=== PATIENT | male | born 1990 | race Two or more races ===

== ENCOUNTER 2020-10-26 13:05 | Emergency (ER) | payer OTHER, SELFPAY ==
[2020-10-26 13:47] VITALS: BP 119/63; PULSE 65; RESP 18; TEMP 36.6; O2SAT 100; BMI 21.4
== END 2020-10-26 16:16 | disposition left against medical advice (07) ==
PROVIDERS: Emergency Provider Emergency Medicine
DX: R10.31 Right lower quadrant pain (principal); F17.200 Nicotine dependence, unspecified, uncomplicated
CPT/HCPCS: 99281; 99283

== ENCOUNTER 2021-07-06 08:55 | Emergency (ER) | payer OTHER, SELFPAY ==
--- NOTE | ~2021-07-06 | XR_ITS ---
EXAMINATION: XR KNEE, LEFT CLINICAL INFORMATION: Trauma, pain COMPARISON: Radiographs left knee 03/08/2019. TECHNIQUE: Four views of the left knee. FINDINGS: There are old postsurgical changes consistent with ACL repair. There is no fracture or dislocation or destructive process. There is a small to moderate suprapatellar effusion. Hoffa's fat pad appears normal. There is no interval joint narrowing or erosive change. XR/XR knee LT 3V IMPRESSION: Postsurgical changes. New small to moderate effusion. No visible fracture or dislocation or destructive process.
[2021-07-06 09:05] VITALS: BP 135/67; PULSE 93; RESP 18; TEMP 36.7; O2SAT 95; BMI 22.7
--- NOTE | 2021-07-06 09:13 | ED_ITS ---
HPI - Extremity Injury (Lower) General Chief Complaint: Extremity Injury, Lower Stated Complaint: L KNEE PAIN Time Seen by Provider: 07/06/21 09:05 Source: patient Mode of arrival: ambulatory Limitations: no limitations History of Present Illness HPI Narrative: 30 y/o male with history of ACL and meniscus surgery in the past who presents to the ER with left knee pain after he twisted it yesterday when he missed a step leaving his house. He reports it feels unsteady and wobbly when he walks. He reports some mild swelling. He has been wearing a knee brace that has been helping. He was sent home from work today because he was limping and in pain. He took Tylenol with no relief. MD complaint: knee injury Onset (ago): day(s) (1) Type of Injury: inversion Place: home Severity: moderate Severity scale (1-10): 5 Relieving factors: nothing Exacerbating factors: weight bearing Context: walking Associated symptoms: ambulatory Other symptoms: none Related Data Previous Rx's Medication Instructions Recorded ibuprofen 600 mg tablet 600 mg PO Q8H PRN #20 tab 07/06/21 Allergies Allergy/AdvReac Type Severity Reaction Status Date / Time hazelnut [HAZELNUT] Allergy Unknown STOMACH Verified 07/06/21 09:08 PAIN mite-Dermatophagoides Allergy Unknown RASH Verified 07/06/21 09:08 farinae, gareth [DUST MITES] shellfish derived Allergy Unknown SWELLING Verified 07/06/21 09:08 [SHELLFISH DERIVED] sweet potato [SWEET POTATO] Allergy Unknown RASH, Verified 07/06/21 09:08 THROAT ITCH HEAT Allergy Intermediate ITCHY, Uncoded 07/14/20 17:16 DIFFICUTLY BREATHING TUNA FISH Allergy Unknown THROAT ITCH Uncoded 07/14/20 17:16 Review of Systems Review of Systems: Constitutional: No Fever, No Chills Cardiovascular: No Chest Pain, No SOB Respiratory: No Cough, No Sputum Gastrointestinal: No Nausea, No Vomiting Musculoskeletal: + joint pain, No Myalgias Skin: No Skin Lesions, No rash Neuro: No Weakness, No Numbness Heme/Lymph: No Bruising PMFSH Past Medical History Medical History (Updated 07/06/21 @ 09:59 by JAYSON Rodriguez) Left ACL tear No known health problems Social History Social History Alcohol intake: never Advance Directives: Yes Advance Directives Information Provided: Yes Advance Directives on File: No Physical Exam Vital Signs: Vital Signs: Last Vital Signs Temp 98.0 F 07/06/21 09:05 Pulse 93 07/06/21 09:05 Resp 18 07/06/21 09:05 BP 135/67 07/06/21 09:05 Pulse Ox 95 07/06/21 09:05 Body Mass Index 22.7 Appearance: Alert. Oriented X3. No acute distress. HEENT: normal inspection CVS: Normal heart rate and rhythm. Pulses normal. Respiratory: No respiratory distress. Skin: Skin warm and dry. Normal skin color. Normal skin turgor. No rashes. Extremities: left knee with minimal swelling, no erythema or warmth. pain upon flexion past 90 degrees, negative anterior drawer test. ambulates with a slight limp Neuro: Oriented X 3. No motor deficit. No sensory deficit. Course Course Course Narrative: 30 y/o male presents with left knee pain s/p minor inversion injury. He thinks he may have heard a pop and it feels wobbly since. No definitive joint laxity on exam however he reports instability. XR showing mild- moderate effusion. No evidence of joint infection. Will place in ALYSS[place], prescribe NSAID, give crutches and have him f/u with Dr. Muller who preformed his previous surgery. He reports grinding pain in the left knee prior to the injury and he feels like it pops in and out. He is stable for d/c with supportive care and outpatient Ortho follow up. Discharge Plan Discharge Clinical Impression: Effusion of left knee Patient Disposition: Home, Self-Care Instructions: Swollen Knee Joint (ED), R.I.C.E. Treatment (ED) Additional Instructions: Your x-ray showed a small to moderate sized joint effusion - fluid on the knee. Wear the ALYSSIA wrap or your knee brace to help compress the knee and reduce the fluid. Rest your knee for the next couple of days, use the crutches as needed. You may bear weight as tolerated. Use ice several times per day. Follow up with Dr. Muller for further evaluation. Prescriptions: New ibuprofen 600 mg tablet 600 mg PO Q8H PRN (Reason: pain) Qty: 20 RF: 0 Referrals: Jasiel Muller MD [Physician] - 2 days (left knee injury w/ joint laxity, hx ACL/meniscus repair) Stand Alone Forms: Work/School Release
[2021-07-06] MEDS: Ibuprofen 600 MG TABLET PO (09:47)
== END 2021-07-06 10:08 | disposition home or self-care (01) ==
PROVIDERS: Emergency Provider Emergency Medicine
DX: M25.462 Effusion, left knee (principal); M25.562 Pain in left knee
CPT/HCPCS: 73562; 99283

== ENCOUNTER → 2021-07-17 09:09 | Outpatient (BNVA) | payer OTHER, SELFPAY | PROVIDERS: Visit Provider Physician Assistant | DX: S83.512A Sprain of anterior cruciate ligament of left knee, initial encounter (principal) | CPT/HCPCS: 99202 ==

== ENCOUNTER 2021-07-26 18:14 | Outpatient (REF) | payer OTHER, SELFPAY ==
--- NOTE | ~2021-07-26 | MR_ITS ---
EXAMINATION: MR KNEE WITHOUT CONTRAST, LEFT CLINICAL INFORMATION: Anterior cruciate ligament sprain. COMPARISON: Multiple priors, most recent left knee radiographs dated 07/06/2021 and left knee MRI dated 05/17/2017. TECHNIQUE: MRI of the knee without contrast was performed using routine sequences on a high-field scanner. FINDINGS: MENISCI: Medial Meniscus: Attenuation with near-complete absence of the meniscal body and posterior horn, consistent with prior meniscectomy. Focal irregularity along the inner margin of the persisting meniscal body, which may represent recurrent focal fraying/tearing. Lateral Meniscus: Possible nondisplaced oblique femoral articular surface tear of the meniscal body, unchanged. LIGAMENTS: Cruciate: Postsurgical change related to an anterior cruciate ligament graft reconstruction. There is a complete tear of the graft with absence centrally. There is expansion of the tibial tunnel with associated degenerative cystic change. The posterior cruciate ligament is intact. Collateral: Intact EXTENSOR MECHANISM: Intact ARTICULAR CARTILAGE/BONE: Patellofemoral Compartment: Central trochlear articular cartilage signal heterogeneity. Tiny marginal osteophytes. Findings are unchanged. Medial Compartment: Posterior lateral tibial plateau articular cartilage signal heterogeneity with areas of full-thickness loss and underlying subchondral cystic change. Prominent associated marrow edema. Tiny marginal osteophytes. Lateral Compartment: Intact articular cartilage. Posterior lateral tibial plateau marrow edema. JOINT FLUID AND BURSAE: Small joint effusion. MR/MR knee LT wo con IMPRESSION: 1. Postsurgical change consistent with anterior cruciate ligament graft. Complete tear through the central aspect of the graft with diffuse degeneration of the tibial component. 2. Marrow edema within the posterior aspect of the medial and lateral tibial plateau, consistent with osseous contusions. 3. Attenuation of the medial meniscal body and posterior horn, consistent with prior meniscectomy. Possible recurrent fraying/tearing along the inner margin of the persistent meniscal body. 4. Possible nondisplaced oblique femoral articular surface tear of the lateral meniscal body, unchanged. 5. Mild medial and patellofemoral compartment osteoarthritis, slightly progressed. Small joint effusion.
== END 2021-07-26 18:15 | disposition home or self-care (01) ==
LOC: HO.MRI 18:14
PROVIDERS: Visit Provider Physician Assistant
DX: S83.512A Sprain of anterior cruciate ligament of left knee, initial encounter (principal)
CPT/HCPCS: 73721

== ENCOUNTER → 2021-07-31 13:49 | Outpatient (BNVA) | payer OTHER, SELFPAY | PROVIDERS: Visit Provider Physician Assistant | DX: T84.89XD Other specified complication of internal orthopedic prosthetic devices, implants and grafts, subsequent encounter (principal) | CPT/HCPCS: 99212 ==

== ENCOUNTER → 2021-10-03 12:35 | Outpatient (BNVA) | payer OTHER, SELFPAY | PROVIDERS: Visit Provider Physician Assistant | DX: T84.89XD Other specified complication of internal orthopedic prosthetic devices, implants and grafts, subsequent encounter (principal) | CPT/HCPCS: 99212 ==

== ENCOUNTER 2021-10-25 14:00 | Outpatient (RCR) | payer OTHER, SELFPAY ==
--- NOTE | 2021-08-11 14:16 | MHC.PT.EP ---
[facility] [place] Office [place] Office [place] Office [address] Shoshana Lundberg [address] [phone] F: [phone] F: [phone] F: [phone] F: [phone] Physical Therapy Plan of Care Date of Evaluation: Date of Surgery: L ACL RECONSTRUCTION PER DR QUINONES 02/28/17..TO HAVE L KNEE SURG IN 4-6 WKS Diagnosis: ACL FULL TEAR OF ACL GRAFT, PREHAB Assessment: Pt IS 30 YO M REFERRED TO PT FROM ORTHO (JAYSON REGAN) S/P COMPLETE TEAR OF ACL GRAFT L KNEE. Pt HAD L ACL RECONSTRUCTION BY DR QUINONES IN 2017. RECENT (07/05/21) Pt FELL (L ANKLE INVERSION) ON SMALL STEP (DOOR THRESHOLD)>MRI/ORTHO AND FOUND TO HAVE COMPLETE TEAR OF ACL GRAFT. IS TO HAVE SURGERY IN 4-6 WKS. REFERRED TO PT AT THIS TIME FOR PREHAB TO WORK ON ROM AND STRENGTH AND HELP DECREASE OVERALL INFLAMMATION AND PAIN. Pt PRESENTS WITH DECREASED END ROM L KNEE FLEX (HAS FULL EXTENSION ALTHOUGH UNCOMFORTABLE TO MAINTAIN), DECREASED L LE STRENGTH. OF NOTE, Pt MAY HAVE SPRAINED L ANKLE WITH FALL (REPORTS INVERSION TYPE MOTION WITH CONTINUED PAIN AND LIMITED ROM/STRENGTH AT ANKLE). Pt ALSO REPORTS L HIP.LB PAIN (LIKELY FROM COMPENSATORY TYPE GT). SHOULD BENEFIT FROM PT TO ADDRESS ALL THESE ISSUES PRIOR TO L KNEE SURGERY IN 4-6 WEEKS Frequency and Duration: The patient will be seen 2X/WK X 4 WKS Short Term Goals: 1. INCREASED AWARENESS L LE CARE 2. IMPROVED SLEEP 3. IMPROVED GT PATTER WITH LRAD (MAY BENEFIT FROM USE OF CANE) 4. INCREASED L ANKLE DF TO NEUTRAL Facility Environmental Technician Goals: 1. INCREASED L KNEE FLEX 5 DEGREES 2. DECREASED L LE PAIN AT LEAST 50% WITH ADLS 3. INCREASED L LE STRENGTH 1/2-1 MM GRADE 4. INCREASED L ANKLE DF TO 5 DEGREES 5. INCREASED L ANKLE STRENGTH 1/2 MM GRADE Treatment Plan: Modalities to reduce pain, spasms and effusion. Manual therapy to restore motion and function. Therapeutic exercise to improve strength and flexibility. Neuromuscular re-education for posture and balance. Therapeutic activities to return to functional activities of daily living. Electronically signed by: KANU ROGERS PT Please sign and return to therapist. Thank you for your referral.
--- NOTE | 2021-11-29 12:19 | MHC.PT.DC ---
[facility] [place] Office [place] Office [place] Office [address] [phone] F: [phone] F: [phone] F: [phone] F: [phone] Physical Therapy Discharge Report Diagnosis: ACL FULL TEAR OF ACL GRAFT, PREHAB Date of Surgery: L ACL RECONSTRUCTION PER DR QUINONES 02/28/17..TO HAVE L KNEE SURG IN 4-6 WKS Date of Evaluation: 08/11/21 Date of Discharge: 11/29/21 Treatments to Date: 9 Cancellations to Date: No Shows to Date: Discharge Status: Achieved Goals Independent with HEP Discharge Summary: Pt LAST SEEN IN [place] ON 10/25/21. PER ASSESSMENT ON THAT DATE BY TORIE WHEELER PTA, Pt continues to christy all CKC exercises reporting he feels much better. Anticipate d/c in 2-3 visits? . NO FURTHER APPTS SCHEDULED. PER NOTES, HAD MET STGS AND SOME LTGS. PER ORTHO NOTE FROM 11/27/21: Assessment & Plan (1) Tear of anterior cruciate ligament graft: Code(s): T84.89XA - Other specified complication of internal orthopedic prosthetic devices, implants and grafts, initial encounter Plan: 30-year-old with a complete tear of the ACL graft. He has done physical therapy and his quad is stronger. He understands the need for additional surgery and additional physical therapy and is willing to proceed forward. I recommend revision ACL reconstruction. I discussed with him the surgery as well as the risks benefits alternatives including, but not limited to, infection, stiffness, arthritis, need for further surgery, continued instability. He expressed understanding and we will proceed forward accordingly. WILL AWAIT FURTHER ORDERS FOR POSTOP PT Electronically signed by: KANU ROGERS PT Please sign and return to therapist. Thank you for your referral.
== END 2021-12-01 09:25 | disposition home or self-care (01) ==
LOC: HO.PT 14:00
PROVIDERS: Visit Provider Physician Assistant
DX: T84.89XD Other specified complication of internal orthopedic prosthetic devices, implants and grafts, subsequent encounter (principal)
CPT/HCPCS: 97110; 97162; 97530; 97535

== ENCOUNTER → 2021-11-27 14:43 | Outpatient (BNVA) | payer OTHER, SELFPAY | PROVIDERS: Visit Provider Orthopaedic Surgery | DX: T84.89XA Other specified complication of internal orthopedic prosthetic devices, implants and grafts, initial encounter (principal) | CPT/HCPCS: 99212 ==

== ENCOUNTER → 2022-02-16 12:47 | Outpatient (BNVA) | payer OTHER, SELFPAY | PROVIDERS: Visit Provider Physician Assistant | DX: Z01.818 Encounter for other preprocedural examination (principal); S83.512A Sprain of anterior cruciate ligament of left knee, initial encounter; T84.89XA Other specified complication of internal orthopedic prosthetic devices, implants and grafts, initial encounter | CPT/HCPCS: 99212 ==

== ENCOUNTER 2022-02-21 07:58 | Day surgery (SDC) | payer OTHER, SELFPAY ==
[2022-02-21] VITALS (16 sets, daily range): BP systolic 106–143; BP diastolic 70–99; PULSE 61–90; RESP 14–16; TEMP 36.4–36.6; O2SAT 97–100; BMI 22.6
--- NOTE | 2022-02-21 08:30 | HO.ANESPROP2 ---
HPI - Anesthesia Eval Consult details Narrative: 31 M for left knee ACL repair Asthma , current smoker [facility] Active Problems Active Problems: All Active Problems (Updated 02/15/22 @ 09:58 by Ashley Case RN) Sprain of anterior cruciate ligament of left knee (Acute) Tear of anterior cruciate ligament graft (Acute) Past Medical History Medical History (Updated 02/15/22 @ 09:58 by Ashley Case RN) Asthma Left ACL tear Migraine Functional capacity: independent ambulation Family History Family history of problems with anesthesia: No Surgical History Surgical History (Updated 02/15/22 @ 09:58 by Ashley Case RN) History of repair of anterior cruciate ligament of left knee History of Problems with Anesthesia: No Social History Social History Alcohol intake: never Patient Tobacco Use Status: Current everyday Tobacco user Cigarettes Per Day: 10 Use of substances other than those prescribed or required for medical reasons: Yes Substance Use Frequency: Occasionally Are you DNR?: No Advance Directives: No Advance Directives Information Provided: Yes Current occupational status: employed Current occupation: rt [employer] Allergies Allergy/AdvReac Type Severity Reaction Status Date / Time hazelnut [HAZELNUT] Allergy Unknown STOMACH Verified 02/15/22 09:53 PAIN mite-Dermatophagoides Allergy Unknown RASH Verified 02/15/22 09:53 farinae, gareth [DUST MITES] shellfish derived Allergy Unknown SWELLING Verified 02/15/22 09:53 [SHELLFISH DERIVED] sweet potato [SWEET POTATO] Allergy Unknown RASH, Verified 02/15/22 09:53 THROAT ITCH HEAT Allergy Intermediate ITCHY, Uncoded 02/15/22 09:53 DIFFICUTLY BREATHING TUNA FISH Allergy Unknown THROAT ITCH Uncoded 02/15/22 09:53 Active Medications: Current Medications Cefazolin Sodium/Dextrose (Ancef) 2 gm in 50 mls @ 100 mls/hr IV PREOP ONE Stop: 02/21/22 08:38 Home Medications Medication Instructions Recorded Confirmed Last Taken Type albuterol sulfate 90 mcg/actuation 2 puff PO Q4-6H PRN 02/15/22 02/15/22 Unknown History aerosol inhaler (ProAir HFA) cetirizine 10 mg tablet 1 tab PO DAILY 02/15/22 02/15/22 Unknown History fluticasone propionate 50 2 spray INTRANASAL DAILY 02/15/22 02/15/22 Unknown History mcg/actuation nasal spray,suspension Exam Exam Date and Time: February 21, 2022 0830 Height,Weight and Vital Signs: Height 5 ft 7 in Weight 65.41 kg Last Vital Signs Temp 97.7 F 02/21/22 08:16 Pulse 68 02/21/22 08:16 Resp 16 02/21/22 08:16 BP 129/70 02/21/22 08:16 Pulse Ox 97 02/21/22 08:16 Airway Mallampati Class: I TM Dist: >3cm Loose/Missing/Broken Teeth: Yes (Chipped teeth multiple , crowns . ) Heart: S1 , S2 Lungs: b/l breath sounds Assessment and Plan Assessment Anesthesia Assessment: Anesthesia Plan Discussed and Chart Reviewed Final Anesthetic Review Family History of Problems with Anesthesia: No History of Problems with Anesthesia: No NPO: Yes ASA Class: II Final Preanesthetic Review: Meds/Allgs Chart Reviewed, Consent Obtained/Reviewed and Anes Risks/Benef Reviewed Patient Risk: Intermediate Procedure Risk: Intermediate Anesthetic Plan Anesthetic Plan: GA and Regional Block Disposition: Standard PACU
--- NOTE | 2022-02-21 10:10 | MHC.SHP ---
Pre-Procedural Eval Section A Date of Service: 02/21/22 The patient is an INPATIENT: No Changes since office visit: Yes Patient answered all questions; No Cold of Flu in the past 2 weeks, No New Medical Problems and No Changes in Medication The History & Physical has been completed within 30 days and I have reviewed it.: Yes Section B Chief Complaint: internal orthopedic prosthetic devices Allergies: Allergies Allergy/AdvReac Type Severity Reaction Status Date / Time hazelnut [HAZELNUT] Allergy Unknown STOMACH Verified 02/15/22 09:53 PAIN mite-Dermatophagoides Allergy Unknown RASH Verified 02/15/22 09:53 farinae, gareth [DUST MITES] shellfish derived Allergy Unknown SWELLING Verified 02/15/22 09:53 [SHELLFISH DERIVED] sweet potato [SWEET POTATO] Allergy Unknown RASH, Verified 02/15/22 09:53 THROAT ITCH HEAT Allergy Intermediate ITCHY, Uncoded 02/15/22 09:53 DIFFICUTLY BREATHING TUNA FISH Allergy Unknown THROAT ITCH Uncoded 02/15/22 09:53 Plan I have reviewed the history and physical and performed a pertinent physical examination on my patient. No changes have occurred unless specified.
--- NOTE | 2022-02-21 12:45 | PM.OP ---
Brief Operative Note Date of Service: 02/21/22 Pre-op diagnosis: Left ACL graft tear Post-op diagnosis: same Procedure: Revision ACL reconstruction with allograft left knee Implants: Chacon and Nephew Allograft [place]ahcon and nephew ACL femoral button Chacon and Nephew 11x25 tibial interference screw Surgeon: Jasiel Muller MD Anesthesia: GETA and regional Was an Director Of Hotel Operations used for this Procedure?: Yes Director Of Hotel Operations: Kelly Saleem Estimated blood loss (mL): 25 Tourniquet time (min): 90 IV fluids (mL): 1,000 Pathology: none sent Condition: stable Disposition: PACU
--- NOTE | 2022-02-21 12:50 | W.PM.OPN ---
Operative Note Operative Note Date of Service: 02/21/22 Narrative: Date of Service: 02/21/22 Pre-op diagnosis: Left ACL graft tear Post-op diagnosis: same Procedure: Revision ACL reconstruction with allograft left knee Implants: Chacon and Nephew posterior tibial Allograft Chacon and nephew ACL femoral button Chacon and Nephew 11x25 tibial interference screw Surgeon: Jasiel Muller MD Anesthesia: GETA and regional Was an Educational Consultant used for this Procedure?: Yes Educational Consultant: Kelly Saleem Estimated blood loss (mL): 25 Tourniquet time (min): 90 IV fluids (mL): 1,000 Pathology: none sent Condition: stable Disposition: PACU Patient was brought to the operating room placed supine on the arthroscopic table and prepped and draped in standard sterile fashion. A time-out was called to identify proper site proper procedure proper surgeon and IV antibiotics per weight were administered. I began by exsanguinating the limb and insufflating tourniquet to 300 mm Hg. Then made a standard anterolateral stab incision. The knee was insufflated with water and 30 degree arthroscope was placed. There was a normal suprapatellar pouch was clean and the gutters were clean. I descended into the medial compartment where I made my far medial portal under direct visualization. There was a diminutive but stable medial meniscus without tearing. The root was intact and there were no cartilage changes throughout the medial compartment. THe ACL graft was torn and resorbed. The lateral compartment was with G1 changes to the tibia. The meniscus was intact and stable. I used a wand and a shaver to remove soft tissue and do a clean up notchplasty. The femoral tunnel was filled in with bone and there was some softening of the tibial tunnel. I drilled my femoral tunnel low and inside from the far medial portal using a 7 mm guide off the posterior wall. I over-reamed this with a 10mm reamer and then completed the tunnel with a 4.5 mm reamer. THe tunnel measure 35 mm. On the back table the posterior tibial allograft was prepared, doubled and put on tension of 15 lbs for 10 minutes. The graft measured just under 10mm using a tendon sizer. I drilled my tibial pin exiting at the footprint of the acl just anterior to the PCL. I then over-reamed my tibial tunnel with a 10 mm reamer and placed my arthroscope in the tunnel. There was some minimal softening anteromedially but otherwise there was good stable bone and a stable tunnel. I then passed my graft and filpped my button on the femur. Tension was applied and I cycled the knee 15-20 times. I then placed my tibial interference screw while applying tension and a posterior force to the tubercle. I had excellent interference screw fixation. Excess graft adn suture were removed and the ACL was assessed. There was no longer a pivot shift on exam. I took my final pictures and I then removed all instrumentation and closed the portals with skin glue. Patient was then placed in sterile dressing and a hinged knee brace. He was extubated brought recovery room stable condition. There were no known complications.
[2022-02-21] MEDS: fentaNYL citrate/PF 100 MCG/2 ML VIAL 25 MCG IVPUSH (13:57)
== END 2022-02-21 16:48 | disposition home or self-care (01) ==
PROVIDERS: Visit Provider Orthopaedic Surgery
PROC: (CPT 29888; principal; 2022-02-21 09:40)
DX: T84.89XA Other specified complication of internal orthopedic prosthetic devices, implants and grafts, initial encounter (principal); M23.612 Other spontaneous disruption of anterior cruciate ligament of left knee; J45.909 Unspecified asthma, uncomplicated; Z79.51 Long term (current) use of inhaled steroids; Z79.1 Long term (current) use of non-steroidal anti-inflammatories (NSAID); Z79.899 Other long term (current) drug therapy; F17.210 Nicotine dependence, cigarettes, uncomplicated
CPT/HCPCS: 29888; C1713; C1769; J0131; J0171; J0690; J1100; J1170; J2250; J2405; J2550; J2795; J3010

== ENCOUNTER → 2022-03-01 11:50 | Outpatient (BNVA) | payer OTHER, SELFPAY | PROVIDERS: Visit Provider Physician Assistant | DX: S83.512D Sprain of anterior cruciate ligament of left knee, subsequent encounter (principal); T84.89XD Other specified complication of internal orthopedic prosthetic devices, implants and grafts, subsequent encounter | CPT/HCPCS: 99212 ==

== ENCOUNTER → 2022-03-29 10:47 | Outpatient (BNVA) | payer OTHER, SELFPAY | PROVIDERS: Visit Provider Physician Assistant | DX: S83.512D Sprain of anterior cruciate ligament of left knee, subsequent encounter (principal); T84.89XD Other specified complication of internal orthopedic prosthetic devices, implants and grafts, subsequent encounter | CPT/HCPCS: 99212 ==

== ENCOUNTER 2022-05-07 14:00 | Outpatient (RCR) | payer OTHER, SELFPAY ==
--- NOTE | 2022-03-30 16:14 | MHC.PT.EP ---
[facility] [place] Office [place] Office [place] Office [address] [phone] F: [phone] F: [phone] F: [phone] F: [phone] Physical Therapy Plan of Care Date of Evaluation: Date of Surgery: 02/21/2022 Diagnosis: other specified complication of internal prosthetic devices, implants and graft, initial encounter s/p ACL recon Tear of anterior cruciate ligament graft Assessment: Chris is a 31 yo M referred to PT for other specified complication of internal prosthetic devices, implants and graft, initial encounter s/p ACL recon. He is currently 5 weeks s/p L ACL reconstruction. He states he has had difficulty walking and turning since his first ACL surgery. He is currently unemployed due to pain. His assist him with ADLs and he utilizes a stool in the shower. He life on the third floor of a building and needs to ambulate 45 steps to get to his living space. His physical impairments include decrease L knee flexion ROM, L knee flexion and extension weakness, antalgic gait, and gross B weakness of hip muscles. Chris will benefit from skilled PT to increase his knee ROM along with his knee and hip strength to normalize his gait and promote a return to functional activities. Frequency and Duration: The patient will be seen 2/week for 12 weeks Short Term Goals: Patient will demonstrate L Knee AROM 0-125 to enable to negotiate stairs in 4 weeks. Patient will demonstrate quad strength 75% of contralateral side in 4 weeks so as to be able to ambulate without AD and brace. Senior Living Goals: Patient will demonstrate I with HEP to promote adjunct faculty for medical terminology pain management and retention of functional capabilities. Patient will demonstrate quadriceps bilateral comparison of 80% or greater in 12 weeks and return to PLOF. Treatment Plan: Modalities to reduce pain, spasms and effusion. Manual therapy to restore motion and function. Therapeutic exercise to improve strength and flexibility. Neuromuscular re-education for posture and balance. Therapeutic activities to return to functional activities of daily living. Electronically signed by: Tamanna Kent PT DPT Please sign and return to therapist. Thank you for your referral.
--- NOTE | 2022-05-25 14:39 | MHC.PT.DC ---
[facility] [place] Office [place] Office [place] Office [address] Shoshana Lundberg [address] [phone] F: [phone] F: [phone] F: [phone] F: [phone] Physical Therapy Discharge Report Diagnosis: other specified complication of internal prosthetic devices, implants and graft, initial encounter s/p ACL recon Tear of anterior cruciate ligament graft Date of Surgery: 02/21/2022 Date of Evaluation: 03/30/22 Date of Discharge: 05/25/22 Treatments to Date: 9 Cancellations to Date: 6 No Shows to Date: 2 Discharge Status: Visit Non-compliance Discharge Summary: Chris had only attended 9 PT visit in 2 months, has had 6 cancels and 2 no show. He has canceled/ no showed his appointments for the last 2 weeks. Attempted to call pt several times. Pt did not return any pf the calls. He is therefore being d/c for non compliance. Electronically signed by: Tamanna Kent PT DPT Please sign and return to therapist. Thank you for your referral.
== END 2022-05-25 14:40 | disposition home or self-care (01) ==
LOC: HO.PT 14:00
PROVIDERS: Visit Provider Physician Assistant
DX: T84.89XA Other specified complication of internal orthopedic prosthetic devices, implants and grafts, initial encounter (principal)
CPT/HCPCS: 97110; 97112; 97116; 97140; 97161; 97530

== ENCOUNTER 2022-07-26 12:01 | Emergency (ER) | payer OTHER, SELFPAY ==
--- NOTE | ~2022-07-26 | XR_ITS ---
EXAMINATION: XR CHEST CLINICAL INFORMATION: Cough and shortness of breath COMPARISON: 10/15/2013 TECHNIQUE: 2 views of the chest were obtained. FINDINGS: No significant abnormality is noted involving the heart, lungs, mediastinum, bony thorax or soft tissues. XR/XR chest 2V IMPRESSION: Unremarkable examination.
[2022-07-26 12:05] VITALS: BP 141/83; PULSE 100; RESP 19; TEMP 36.6; O2SAT 98; BMI 22.7
[2022-07-26 12:42] VITALS: BP 119/58; PULSE 80; RESP 18; TEMP 35.8; O2SAT 95
--- OUTSIDE RECORDS SUMMARY | 2022-07-26 12:52 | XMS_ITS | Continuity of Care Document ---
:1990 Author Organization [facility] Address [address] [place] [id number]- Care Team Providers Name Role Phone Luís AUGUSTE, Gian Ahumada Primary Care Physician Encounter [facility] Date(s): 10/26/20 - 10/27/[address] [id number]- Discharge Disposition: A-D/C Home Attending Physician: Blayne Gaspar DO Admitting Physician: Blayne Gaspar DO Referring Physician: Not on Staff, Referring MD Allergies, Adverse Reactions, Alerts No Known Medication Allergies Medications No Known Medications Vital Signs Most recent to oldest 1 2 3 [Reference Range]: Oxygen Saturation [94-100 99 % 100 % 98 % %] (10/27/20 12:29 AM) (10/26/20 9:21 PM) (10/26/20 6:18 PM) Pulse Rate [55-90 bpm] 64 bpm 70 bpm 94 bpm (10/27/20 12:29 AM) (10/26/20 6:18 PM) *H* (10/26/20 5:45 P M) Blood Pressure 120/77 mm Hg 122/67 mm Hg 118/78 mm Hg [90-138/55-84 mm Hg] (10/27/20 12:29 AM) (10/26/20 9:21 PM) ( 6:18 PM) Respiratory Rate [16-30 18 br/min 16 br/min 14 br/mi n br/min] (10/27/20 12:29 AM) (10/26/20 9:21 PM) *L* (10/26/20 6:18 P M) Temperature [96.8-100.4 98.3 DegF DegF] (10/26/20 6:18 PM) Mode of Delivery (Oxygen) Room air Room air Room a ir (10/27/20 12:29 AM) (10/26/20 9:21 PM) (10/26/20 6:18 PM) Blood pressure sites Arm, right (10/27/20 12:29 AM) Temperature Route Oral (10/26/20 6:18 PM)
[2022-07-26 13:06] LABS: COVID-19 Test Negative (Negative); IDNOW Serial# 16C4AD1C
--- NOTE | 2022-07-26 13:06 | ED_ITS ---
HPI - URI/Sore Throat General Chief Complaint: Upper Respiratory Symptoms Stated Complaint: cough, chest pain Time Seen by Provider: 07/26/22 12:49 Source: patient Mode of arrival: ambulatory Limitations: no limitations History of Present Illness HPI Narrative: 31-year-old male presents to the ER for evaluation of cough, shortness of breath, subjective fevers and diffuse body aches that started yesterday. Mukul lawrence reports being up all night coughing and was not able to sleep. He reports whenever he tries to take a deep breath he is unable to do and coughs. He is not bring up any phlegm or sputum. He had subjective fever last night and took some Tylenol with improvement. He states all of his muscles and joints are sore. He denies any sick contacts. 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 He is vaccinated for COVID and has had no sick contacts. MD elicited complaint: cough and other (SOB, body aches) Onset (ago): day(s) (1) Consistency: constant Severity: moderate Able to tolerate fluids by mouth: Yes Exacerbating factors: supine positioning Relieving factors: nothing Associated symptoms: fever, chills, myalgias, nasal congestion, cough, chest pain and shortness of breath Treatments prior to arrival: none Related Data Home Medications Medication Instructions Recorded Confirmed albuterol sulfate 90 mcg/actuation 2 puff PO Q4-6H PRN Wheezing 02/15/22 02/15/22 aerosol inhaler (ProAir HFA) cetirizine 10 mg tablet 1 tab PO DAILY 02/15/22 02/15/22 fluticasone propionate 50 2 spray intranasal DAILY 02/15/22 02/15/22 mcg/actuation nasal spray,suspension Previous Rx's Medication Instructions Recorded ibuprofen 600 mg tablet 600 mg PO Q8H PRN pain #20 tabs 07/06/21 oxycodone 10 mg tablet,crush 10 mg PO Q12H 3 days #6 tabs 02/21/22 resistant,extended release 12 hr (OxyContin) docusate sodium 100 mg capsule 100 mg PO BID 30 days #60 caps 03/20/22 (Colace) oxycodone-acetaminophen 5 mg-325 1 tab PO Q8H PRN pain (scale score 05/27/22 mg tablet (Percocet) 4-6) 7 days #21 tabs benzonatate 100 mg capsule 100 mg PO TID PRN cough #20 caps 07/26/22 hydrocodone-homatropine 5 mg-1.5 5 ml PO Q6H PRN cough #60 mL 07/26/22 mg/5 mL oral syrup Allergies Allergy/AdvReac Type Severity Reaction Status Date / Time hazelnut [HAZELNUT] Allergy Unknown STOMACH Verified 05/15/22 12:31 PAIN mite-Dermatophagoides Allergy Unknown RASH Verified 05/15/22 12:31 farinae, gareth [DUST MITES] shellfish derived Allergy Unknown SWELLING Verified 05/15/22 12:31 [SHELLFISH DERIVED] sweet potato [SWEET POTATO] Allergy Unknown RASH, Verified 05/15/22 12:31 THROAT ITCH HEAT Allergy Intermediate ITCHY, Uncoded 03/29/22 11:54 DIFFICUTLY BREATHING TUNA FISH Allergy Unknown THROAT ITCH Uncoded 03/29/22 11:54 Review of Systems Review of Systems: Constitutional: + Fever, +Chills ENT/Mouth: No sore throat, No Rhinorrhea, No Swallowing Difficulty Cardiovascular: + Chest Pain, +SOB, No Orthopnea, No Edema Respiratory: + Cough, No Sputum, No Wheezing, No dyspnea Gastrointestinal: No Nausea, No Vomiting, No Diarrhea, No abdominal Pain Genitourinary: No Dysuria, No Urinary Frequency, No Hematuria Musculoskeletal: + joint pain, + Myalgias Skin: No Skin Lesions, No rash Neuro: No Weakness, No Numbness, No Dizziness, No Headache Heme/Lymph: No Bruising, No Lymphadenopathy PMFSH Past Medical History Medical History Asthma Left ACL tear Migraine Surgical History History of repair of anterior cruciate ligament of left knee Social History Social History Alcohol intake: never Patient Tobacco Use Status: Current everyday Tobacco user Cigarettes Per Day: 10 Smoked in Last 30 Days: Yes Use of substances other than those prescribed or required for medical reasons: Yes Substance Use Type: Marijuana Substance Use Frequency: Daily Last Used Substance: Days (ago) Any prior treatment program specific to substance use: No Advance Directives: No Advance Directives Information Provided: No Current occupational status: employed Current occupation: rt handed/manufacturing Physical Exam Vital Signs: Vital Signs: Last Vital Signs Temp 96.4 F L 07/26/22 12:42 Pulse 80 07/26/22 12:42 Resp 18 07/26/22 12:42 BP 119/58 L 07/26/22 12:42 Pulse Ox 95 07/26/22 12:42 O2 Del Method 07/26/22 12:42 BMI result Body Mass Index 22.7 Appearance: Alert. Oriented X3. No acute distress. Eyes: Pupils equal, round and reactive to light. ENT: Pharynx normal. Moist mucous membranes. No tonsillar swelling or exudate Neck: Normal inspection. Neck supple. CVS: Normal heart rate and rhythm. Pulses normal. Mild chest wall tenderness diffusely throughout. Respiratory: No respiratory distress. Breath sounds normal. Skin: Skin warm and dry. Normal skin color. Normal skin turgor. No rashes. Extremities: No lower extremity edema. Neuro: Oriented X 3. Grossly normal, nonfocal Course Course Course Narrative: 31-year-old male presents to the ER for evaluation of dry cough, shortness of breath and some chest pains that started yesterday as well as some body aches. It is difficult for him to take a deep breath without coughing. On arrival to the ER his vital signs are within normal limits. His lung sounds are clear. Chest x-ray, COVID, influenza status have been ordered. Doubt pneumonia. Doubt PE. Most likely viral URI. Reevaluation(s) Reevaluation #1: Patient is negative for COVID, influenza. Chest x-ray is clear. Most likely viral infection. Will prescribe antitussives and provide work note per request. Stable for discharge home. Supportive care and return precautions were discussed. Stable for DC MDM - URI/Sore Throat Lab Data Labs: Lab Results 07/26/22 07/26/22 Range/Units 12:08 12:59 COVID-19 (JENI) Negative (Negative) COVID-19 Clin Com See Note Influenza Type A (TRIPP) Negative (Negative) Influenza Type B (TRIPP) Negative (Negative) Influenza A & B Note See Note Discharge Plan Discharge Clinical Impression: Viral infection Patient Disposition: Home, Self-Care Instructions: Viral Syndrome (ED) Additional Instructions: Your chest x-ray was normal. You are negative for COVID-19 & Influenza. Your symptoms are most likely due to another viral illness. Treatment is supportive care. Rest. Drink plenty of fluids. Do not go out in public while you are not feeling well. Take over the counter cold/flu medications as needed for your symptoms. Take Tylenol and/or Motrin as needed for fevers and body aches. Follow up with your doctor this week. If you shortness of breath worsens , if you develop difficulty breathing or any other concerning symptom come back to the ER for further evaluation. Prescriptions: New hydrocodone-homatropine 5-1.5 mg/5 mL syrup 5 ml PO Q6H PRN (Reason: cough) Qty: 60 0RF Rx Instructions: Partial Fill upon patient request. benzonatate 100 mg capsule 100 mg PO TID PRN (Reason: cough) Qty: 20 0RF No Action docusate sodium [Colace] 100 mg capsule 100 mg PO BID 30 Days Qty: 60 0RF oxycodone-acetaminophen [Percocet] 5-325 mg tablet 1 tab PO Q8H PRN (Reason: pain (scale score 4-6)) 7 Days Qty: 21 0RF ibuprofen 600 mg tablet 600 mg PO Q8H PRN (Reason: pain) Qty: 20 0RF cetirizine 10 mg tablet 1 tab PO DAILY albuterol sulfate [ProAir HFA] 90 mcg/actuation HFA aerosol inhaler 2 puff PO Q4-6H PRN (Reason: Wheezing) fluticasone propionate 50 mcg/actuation spray,suspension 2 spray intranasal DAILY oxycodone [OxyContin] 10 mg tablet,oral only,ext.rel.12 hr 10 mg PO Q12H 3 Days Qty: 6 0RF Stand Alone Forms: Work/School Release
[2022-07-26 13:24] LABS: Influenza A Negative (Negative); Influenza B2 Negative (Negative)
== END 2022-07-26 14:20 | disposition home or self-care (01) ==
PROVIDERS: Physician Assistant; Emergency Provider Emergency Medicine
DX: B34.9 Viral infection, unspecified (principal); R06.02 Shortness of breath; Z20.822 Contact with and (suspected) exposure to COVID-19; F17.210 Nicotine dependence, cigarettes, uncomplicated
CPT/HCPCS: 71046; 87502; 87635; 99283; 99284

== ENCOUNTER 2022-10-21 11:12 | Emergency (ER) | payer OTHER, SELFPAY ==
[2022-10-21 11:14] VITALS: BP 148/98; PULSE 92; RESP 20; TEMP 37.4; O2SAT 100; BMI 21.4
--- NOTE | 2022-10-21 11:24 | ED_ITS ---
HPI - General Adult General Chief complaint: General Medical Stated complaint: body aches, vomiting Source: patient Mode of arrival: ambulatory History of Present Illness HPI narrative: 31-year-old male with past medical history of asthma, migraines, presenting to the ED complaining of subjective fever, myalgias, body ache, cough, SOB, chest discomfort with cough, nausea, decreased p.o. intake x2 days. Reports with similar symptoms. Denies taking medications [employer]IP[employer]. Denies abdominal pain, diarrhea, vomiting, recent travel Onset (ago): day(s) Related Data Home Medications Medication Instructions Recorded Confirmed albuterol sulfate 90 mcg/actuation 2 puff PO Q4-6H PRN Wheezing 02/15/22 02/15/22 aerosol inhaler (ProAir HFA) cetirizine 10 mg tablet 1 tab PO DAILY 02/15/22 02/15/22 fluticasone propionate 50 2 spray intranasal DAILY 02/15/22 02/15/22 mcg/actuation nasal spray,suspension Previous Rx's Medication Instructions Recorded ibuprofen 600 mg tablet 600 mg PO Q8H PRN pain #20 tabs 07/06/21 oxycodone 10 mg tablet,crush 10 mg PO Q12H 3 days #6 tabs 02/21/22 resistant,extended release 12 hr (OxyContin) docusate sodium 100 mg capsule 100 mg PO BID 30 days #60 caps 03/20/22 (Colace) oxycodone-acetaminophen 5 mg-325 1 tab PO Q8H PRN pain (scale score 03/23/22 mg tablet (Percocet) 4-6) 7 days #21 tabs benzonatate 100 mg capsule 100 mg PO TID PRN cough #20 caps 07/26/22 hydrocodone-homatropine 5 mg-1.5 5 ml PO Q6H PRN cough #60 mL 07/26/22 mg/5 mL oral syrup Allergies Allergy/AdvReac Type Severity Reaction Status Date / Time hazelnut [HAZELNUT] Allergy Unknown STOMACH Verified 05/15/22 12:31 PAIN mite-Dermatophagoides Allergy Unknown RASH Verified 05/15/22 12:31 farinae, gareth [DUST MITES] shellfish derived Allergy Unknown SWELLING Verified 05/15/22 12:31 [SHELLFISH DERIVED] sweet potato [SWEET POTATO] Allergy Unknown RASH, Verified 05/15/22 12:31 THROAT ITCH HEAT Allergy Intermediate ITCHY, Uncoded 03/29/22 11:54 DIFFICUTLY BREATHING TUNA FISH Allergy Unknown THROAT ITCH Uncoded 03/29/22 11:54 Review of Systems Review of Systems: Constitutional: +subj Fever, No Chills, +Fatigue, No Malaise ENT/Mouth: No Ear Pain, + Nasal Congestion, No Sinus Pain, No Hoarseness, + sore throat, + Rhinorrhea, No Swallowing Difficulty Eyes: No Eye Pain, No Swelling, No Redness, No Vision Changes Cardiovascular: + Chest Pain when coughing, + SOB, No Dyspnea on Exertion, No Edema, No Palpitations Respiratory: + Cough, No Sputum, No Wheezing, No Dyspnea Gastrointestinal: + Nausea, No Vomiting, No Diarrhea, No Constipation, No Abdominal pain Genitourinary: No Dysuria, No Hematuria, No Flank Pain, No Urinary Flow Changes, No Hesitancy Musculoskeletal: No joint pain, No Myalgias, No Joint Swelling Skin: No Skin Lesions, No rash Neuro: No Weakness, No Numbness, No Dizziness, No Headache Yes all other systems are reviewed and are negative Constitutional: Constitutional: Reports as per [facility] Past Medical History Attestation statement: The following information was validated with the patient. Medical History Asthma Left ACL tear Migraine Surgical History History of repair of anterior cruciate ligament of left knee Social History Social History Alcohol intake: never Patient Tobacco Use Status: Current everyday Tobacco user Cigarettes Per Day: 10 Substance Use Type: Marijuana Advance Directives: No Current occupational status: employed Current occupation: rt handed/manufacturing Physical Exam ED Vital Signs: Vital Signs - 24 hr 10/21/22 11:14 Temperature 99.4 F Pulse Rate 92 Respiratory Rate 20 Blood Pressure 148/98 H Pulse Oximetry 100 Oxygen Delivery Method Room Air BMI result Body Mass Index 21.4 Const General: cooperative, healthy appearing and no acute distress Orientation/consciousness: patient oriented x3 Limitations: no limitations HENMT Head: Yes normal to inspection and Yes atraumatic Ears: hearing grossly normal bilaterally, TM's normal bilaterally, mastoids normal and external ear abnormal auricular tenderness on the right and pain with movement of external ear on the right General nose exam: Normal external nose present Face and sinus: Yes normal facial exam Throat: Yes posterior oropharynx normal, Yes tonsils normal, Yes uvula midline, No peritonsillar mass, No uvula laterally displaced and No uvular edema Eyes General: appearance normal, both eyes and all related structures EOM: EOMs intact bilaterally Neck Neck: Yes normal visual inspection, Yes no lymphadenopathy and Yes no meningeal signs Resp Effort & Inspection: normal respiratory effort and no respiratory distress Auscultation: clear to auscultation bilaterally, no crackles, no rales and no rhonchi Cardio Rate: regular rate Heart sounds: S1 normal heart sound present and S2 normal heart sound present GI Inspection: Yes normal to inspection Palpation (GI): Soft to palpation, nontender, no guarding and not rigid Skin Rashes: no rashes Wounds: no wounds Neuro General: patient oriented x3, tone normal and no meningeal signs Gait exam (Neuro): Normal gait present Extrem General: Yes normal to inspection Course Course Course Narrative: -chest x-ray unremarkable -influenza a positive Patient tolerated p.o. in the ED without nausea or vomiting Results discussed with patient including worrisome signs and symptoms and strict return precautions, and when to return to the emergency department. They verbalized understanding and feel safe for discharge at this time. Medications Administered Discontinued Medications Generic Name Dose Route Start Last Admin Trade Name Freq PRN Reason Stop Dose Admin Ibuprofen 600 mg 10/21/22 11:29 10/21/22 11:54 Ibuprofen 600 Mg Tablet PO 10/21/22 11:30 600 mg ONCE ONE Administration Ondansetron HCl 4 mg 10/21/22 11:29 10/21/22 11:55 Ondansetron Odt 4 Mg Tab.Rapdis TRANSLINGU 10/21/22 11:30 4 mg ONCE ONE Administration Medical Decision Making Medical Decision Making MDM Narrative: 31-year-old male with past medical history of asthma, migraines, presenting to the ED complaining of subjective fever, myalgias, body ache, cough, SOB, chest discomfort with cough, nausea, decreased p.o. intake x2 days. On exam low-grade temp 99.4 degrees, NAD, nontoxic appearing, lungs CTA, abdomen soft/nontender, pain elicited on right pinna/external ear palpation. TMs/mastoids WNL. Concern for viral illness and otitis externa. Rule out pneumonia versus bronchitis. Low suspicion for ACS/PE or intra-abdominal pathology including appendicitis/diverticulitis Plan: COVID/flu/RSV, PO Motrin, PO challenge Differential Diagnosis Differential Diagnoses: The differential diagnosis associated with the presentation includes Admission/Observation Consideration of admission/observation: Escalation of care including admission/observation considered Lab Data Labs: Lab Results 10/21/22 Range/Units 11:30 Influenza Type A (PCR) POSITIVE A (Negative) Influenza Type B (PCR) NEGATIVE (Negative) RSV RNA Qual (PCR) NEGATIVE (Negative) SARS-CoV-2 RNA (RT-PCR) NEGATIVE (Negative) Discharge Plan Discharge Clinical Impression: Influenza A Patient Disposition: Home, Self-Care Prescriptions: No Action docusate sodium [Colace] 100 mg capsule 100 mg PO BID 30 Days Qty: 60 0RF oxycodone-acetaminophen [Percocet] 5-325 mg tablet 1 tab PO Q8H PRN (Reason: pain (scale score 4-6)) 7 Days Qty: 21 0RF ibuprofen 600 mg tablet 600 mg PO Q8H PRN (Reason: pain) Qty: 20 0RF cetirizine 10 mg tablet 1 tab PO DAILY albuterol sulfate [ProAir HFA] 90 mcg/actuation HFA aerosol inhaler 2 puff PO Q4-6H PRN (Reason: Wheezing) fluticasone propionate 50 mcg/actuation spray,suspension 2 spray intranasal DAILY oxycodone [OxyContin] 10 mg tablet,oral only,ext.rel.12 hr 10 mg PO Q12H 3 Days Qty: 6 0RF hydrocodone-homatropine 5-1.5 mg/5 mL syrup 5 ml PO Q6H PRN (Reason: cough) Qty: 60 0RF Rx Instructions: Partial Fill upon patient request. benzonatate 100 mg capsule 100 mg PO TID PRN (Reason: cough) Qty: 20 0RF
--- NOTE | 2022-10-21 11:55 | PC.NURSE ---
pt medicated per order, swabs obtained
[2022-10-21 12:16] LABS: Influenza A PCR POSITIVE (Negative); Influenza B PCR NEGATIVE (Negative); Resp Syncy Virus RNA Qual PCR NEGATIVE (Negative); SARS COV2 PCR INHOUSE NEGATIVE (Negative)
== END 2022-10-21 13:21 | disposition home or self-care (01) ==
PROVIDERS: Physician Assistant; Emergency Provider Student in an Organized Health Care Education/Training Program
DX: J10.1 Influenza due to other identified influenza virus with other respiratory manifestations (principal); M79.10 Myalgia, unspecified site; R50.9 Fever, unspecified; R05.9 Cough, unspecified; F17.210 Nicotine dependence, cigarettes, uncomplicated; Z71.6 Tobacco abuse counseling; Z20.822 Contact with and (suspected) exposure to COVID-19
CPT/HCPCS: 0241U; 71045; 99283

== ENCOUNTER 2022-12-10 11:07 | Emergency (ER) | payer OTHER, SELFPAY ==
--- NOTE | ~2022-12-10 | XR_ITS ---
EXAMINATION: XR KNEE, LEFT CLINICAL INFORMATION: Pain post fall COMPARISON: Previous x-ray June 2021 TECHNIQUE: Four views of the left knee. FINDINGS: There are postsurgical changes following ACL repair. No fracture or dislocation. Small osteophytes the patellofemoral joint. Joint spaces are otherwise normal. No joint effusion. XR/XR knee LT 4V IMPRESSION: Stable postsurgical changes from ACL repair. No acute findings.
[2022-12-10 11:40] VITALS: BP 130/70; PULSE 80; RESP 18; TEMP 36.6; O2SAT 98; BMI 23.1
--- NOTE | 2022-12-10 11:41 | ED_ITS ---
HPI - Extremity Injury (Lower) General Chief Complaint: Extremity Injury, Lower <JAYSON Rodriguez - Last Filed: 12/10/22 11:42> Stated Complaint: leg inj at work <JAYSON Rodriguez - Last Filed: 12/10/22 11:42> Time Seen by Provider: 12/10/22 12:23 <JAYSON Rodriguez - Last Filed: 12/10/22 11:42> Source: patient <Laina Alcocer CNP - Last Filed: 12/10/22 17:36> Mode of arrival: ambulatory <Laina Alcocer CNP - Last Filed: 12/10/22 17:36> Limitations: no limitations <Laina Alcocer CNP - Last Filed: 12/10/22 17:36> History of Present Illness HPI Narrative: Patient is a 32-year-old male presents emergency department for evaluation of left knee pain after mechanical fall having occurred yesterday while at work. States that he tripped over something while carrying a heavy box, Reports falling directly on to the left knee and heard a clank . He has been able to on the left leg with states he has went, it is painful with weight-bearing. Denies numbness tingling or cold sensation to the left leg/foot. Reports hi story of ACL/meniscus repair approximately 1 year ago, with [facility]. <Laina Alcocer CNP - Last Filed: 12/10/22 17:36> Related Data Home Medications: Home Medications Medication Instructions Recorded Confirmed albuterol sulfate 90 mcg/actuation 2 puff PO Q4-6H PRN Wheezing 02/15/22 02/15/22 aerosol inhaler (ProAir HFA) cetirizine 10 mg tablet 1 tab PO DAILY 02/15/22 02/15/22 fluticasone propionate 50 2 spray intranasal DAILY 02/15/22 02/15/22 mcg/actuation nasal spray,suspension Previous Rx's Medication Instructions Recorded ibuprofen 600 mg tablet 600 mg PO Q8H PRN pain #20 tabs 07/06/21 oxycodone 10 mg tablet,crush 10 mg PO Q12H 3 days #6 tabs 02/21/22 resistant,extended release 12 hr (OxyContin) docusate sodium 100 mg capsule 100 mg PO BID 30 days #60 caps 03/20/22 (Colace) oxycodone-acetaminophen 5 mg-325 1 tab PO Q8H PRN pain (scale score 03/23/22 mg tablet (Percocet) 4-6) 7 days #21 tabs benzonatate 100 mg capsule 100 mg PO TID PRN cough #20 caps 07/26/22 hydrocodone-homatropine 5 mg-1.5 5 ml PO Q6H PRN cough #60 mL 07/26/22 mg/5 mL oral syrup ondansetron 4 mg disintegrating 4 mg PO Q8H PRN nausea and 10/21/22 tablet vomiting #10 tabs oseltamivir 75 mg capsule (Tamiflu) 75 mg PO Q12H 5 days #10 caps 10/21/22 <JAYSON Rodriguez - Last Filed: 12/10/22 11:42> Allergies/Adverse Reactions: Allergies Allergy/AdvReac Type Severity Reaction Status Date / Time hazelnut [HAZELNUT] Allergy Unknown STOMACH Verified 05/15/22 12:31 PAIN mite-Dermatophagoides Allergy Unknown RASH Verified 05/15/22 12:31 farinae, gareth [DUST MITES] shellfish derived Allergy Unknown SWELLING Verified 05/15/22 12:31 [SHELLFISH DERIVED] sweet potato [SWEET POTATO] Allergy Unknown RASH, Verified 05/15/22 12:31 THROAT ITCH HEAT Allergy Intermediate ITCHY, Uncoded 03/29/22 11:54 DIFFICUTLY BREATHING TUNA FISH Allergy Unknown THROAT ITCH Uncoded 03/29/22 11:54 <JAYSON Rodriguez - Last Filed: 12/10/22 11:42> Review of Systems Review of Systems: Pertinent positives and negatives as noted in HPI <Laina Alcocer CNP - Last Filed: 12/10/22 17:36> Yes all other systems are reviewed and are negative <Laina Alcocer CNP - Last Filed: 12/10/22 17:36> PMFSH Past Medical History Attestation statement: The following information was validated with the patient. <Laina Alcocer CNP - Last Filed: 12/10/22 17:36> Source: old records reviewed <Laina Alcocer CNP - Last Filed: 12/10/22 17:36> Medical History: Medical History Asthma Left ACL tear Migraine <JAYSON Rodriguez - Last Filed: 12/10/22 11:42> Surgical History: Surgical History History of repair of anterior cruciate ligament of left knee <JAYSON Rodriguez - Last Filed: 12/10/22 11:42> Social History Social History: Social History Alcohol intake: never Patient Tobacco Use Status: Current everyday Tobacco user Cigarettes Per Day: 10 Smoked in Last 30 Days: No Use of substances other than those prescribed or required for medical reasons: No Substance Use Type: Marijuana Advance Directives: No Advance Directives Information Provided: No Current occupational status: employed Current occupation: rt handed/manufacturing <JAYSON Rodriguez - Last Filed: 12/10/22 11:42> Physical Exam Vital Signs: Vital Signs: Last Vital Signs Temp 97.8 F 12/10/22 12:42 Pulse 74 12/10/22 12:42 Resp 16 12/10/22 12:42 BP 135/69 12/10/22 12:42 Pulse Ox 99 12/10/22 12:42 O2 Del Method 12/10/22 12:42 BMI result Body Mass Index 23.1 <JAYSON Rodriguez - Last Filed: 12/10/22 11:42> Vital Signs: Last Vital Signs Temp 97.8 F 12/10/22 12:42 Pulse 74 12/10/22 12:42 Resp 16 12/10/22 12:42 BP 135/69 12/10/22 12:42 Pulse Ox 99 12/10/22 12:42 O2 Del Method 12/10/22 12:42 BMI result Body Mass Index 23.1 <Laina Alcocer CNP - Last Filed: 12/10/22 17:36> Appearance: Alert.?Oriented to person, place and time. No acute distress.?Normal affect. Eyes: Pupils equal, round and reactive to light.? ENT: Pharynx normal.?? Neck: Normal inspection.? Neck supple.?? CVS: Heart sounds normal. Normal heart rate and rhythm.? Pulses normal.?? Respiratory: No respiratory distress.? Lung sounds clear to auscultation bilaterally?? Abdomen: Soft and non-tender. Normoactive bowel sounds. ?? Skin: Skin warm and dry.? Normal skin color.? Extremities: No lower extremity edema.? No calf ttp. 2+ DP/PT pulse bilaterally. No obvious deformity, effusion. No laxity. Anterior drawer test negative, posterior drawer test negative, valgus stress test negative, Veress stress test negative, Julita test and negative. Patellar DTRs and Achilles reflex 2+ bilaterally. Neuro: Moves all extremities spontaneously. Sensation intact bilaterally. Ambulates with steady antalgic gait <Laina Alcocer CNP - Last Filed: 12/10/22 17:36> Course Course Course Narrative: RME - 32 y/o male presents to the ER c/o left knee pain s/p mechanical fa ll yesterday at work. Fell directly onto it and heard a clank. History of ACL and meniscus repair in that knee. Ambulatory but with a slight limp, no other injures. XR knee ordered. <JAYSON Rodriguez - Last Filed: 12/10/22 11:42> Reevaluation(s) Reevaluation #1: X-ray imaging reveals no acute fracture dislocation, postsurgical sick changes from ACL repair. Reviewed these findings with patient. Gee bandage for compression applied, provided with crutches, advised rest, ice, elevation, acetaminophen/ibuprofen for pain. Outpatient follow-up with workman's Comp/primary care provider/Orthopedics. Reviewed worrisome signs and symptoms of warrant re-evaluation in the emergency department. All questions answered. Departed in stable condition. <Laina Alcocer CNP - Last Filed: 12/10/22 17:36> Time: 14:01 <Laina Alcocer CNP - Last Filed: 12/10/22 17:36> Medical Decision Making Medical Decision Making MDM Narrative: Patient is a 32-year-old male presents emergency department for evaluation of left knee pain s/p mechanical fall yesterday due to injury to knee. Extremity is neurovascularly intact distally. No obvious deformities, no swelling, erythema, warmth, no laxity. On 02/21/2022 patient underwent revision of ACL reconstruction with Dr. Muller. Obtaining XR imaging for further evaluation. <Laina Alcocer CNP - Last Filed: 12/10/22 17:36> Differential Diagnosis Differential Diagnoses: The differential diagnosis associated with the presentation includes (Fracture, dislocation, ligamentous injury, contusion) <Laina Alcocer CNP - Last Filed: 12/10/22 17:36> Independent Interpretation I performed an independent interpretation of an: Plain X-Ray (I personally interpreted x-ray imaging and agree with radiologist impression) <Laina Alcocer CNP - Last Filed: 12/10/22 17:36> Radiology Impression Discussion of test interpretation with radiology: I have reviewed the radiologist's reading. <Laina Alcocer CNP - Last Filed: 12/10/22 17:36> Radiologist Impression: XR/XR knee LT 4V IMPRESSION: Stable postsurgical changes from ACL repair. No acute findings. <Laina Alcocer CNP - Last Filed: 12/10/22 17:36> External Record Review External record reviewed: Outpatient record (Orthopedics as noted above) <Laina Alcocer CNP - Last Filed: 12/10/22 17:36> Prescription Management I considered prescription management with: Pain Medication <Laina Alcocer CNP - Last Filed: 12/10/22 17:36> Discharge Plan Discharge Clinical Impression: Contusion of knee, left <JAYSON Rodriguez - Last Filed: 12/10/22 11:42> Patient Disposition: Home, Self-Care <JAYSON Rodriguez - Last Filed: 12/10/22 11:42> Instructions: Contusion in Adults (ED), R.I.C.E. Treatment (ED) <JAYSON Rodriguez - Last Filed: 12/10/22 11:42> Additional Instructions: Keep Gee bandage in place for compression, use crutches, and bear weight as tolerated. You can take ibuprofen 200 mg, 3 tablets (600mg) every 6-8 hours as needed for pain, in addition to Tylenol 500 mg, 2 tablets (1,000mg) every 4-6 hours as needed for pain, but not to exceed 3 doses daily (3,000mg).? As we discussed, please contact your employer to determine appropriate follow-up as this was a work related injury, speak with your primary care provider, as you may also require referral to orthopedic should pain persist. <JAYSON Rodriguez - Last Filed: 12/10/22 11:42> Prescriptions: No Action docusate sodium [Colace] 100 mg capsule 100 mg PO BID 30 Days Qty: 60 0RF oxycodone-acetaminophen [Percocet] 5-325 mg tablet 1 tab PO Q8H PRN (Reason: pain (scale score 4-6)) 7 Days Qty: 21 0RF ibuprofen 600 mg tablet 600 mg PO Q8H PRN (Reason: pain) Qty: 20 0RF cetirizine 10 mg tablet 1 tab PO DAILY albuterol sulfate [ProAir HFA] 90 mcg/actuation HFA aerosol inhaler 2 puff PO Q4-6H PRN (Reason: Wheezing) fluticasone propionate 50 mcg/actuation spray,suspension 2 spray intranasal DAILY oxycodone [OxyContin] 10 mg tablet,oral only,ext.rel.12 hr 10 mg PO Q12H 3 Days Qty: 6 0RF hydrocodone-homatropine 5-1.5 mg/5 mL syrup 5 ml PO Q6H PRN (Reason: cough) Qty: 60 0RF Rx Instructions: Partial Fill upon patient request. benzonatate 100 mg capsule 100 mg PO TID PRN (Reason: cough) Qty: 20 0RF oseltamivir [Tamiflu] 75 mg capsule 75 mg PO Q12H 5 Days Qty: 10 0RF ondansetron 4 mg tablet,disintegrating 4 mg PO Q8H PRN (Reason: nausea and vomiting) Qty: 10 0RF <JAYSON Rodriguez - Last Filed: 12/10/22 11:42> Referrals: Physician,None [Primary Care Provider] - <JAYSON Rodriguez - Last Filed: 12/10/22 11:42> Stand Alone Forms: Work/School Release <JAYSON Rodriguez - Last Filed: 12/10/22 11:42> Interventions: ED Discharge Assessment Last Done: 12/10/22 14:39 <JAYSON Rodriguez - Last Filed: 12/10/22 11:42> Discharge Date/Time: 12/10/22 14:39 <JAYSON Rodriguez - Last Filed: 12/10/22 11:42>
[2022-12-10 12:42] VITALS: BP 135/69; PULSE 74; RESP 16; TEMP 36.6; O2SAT 99
== END 2022-12-10 14:39 | disposition home or self-care (01) ==
PROVIDERS: Emergency Provider Emergency Medicine
DX: S80.02XA Contusion of left knee, initial encounter (principal); W01.0XXA Fall on same level from slipping, tripping and stumbling without subsequent striking against object, initial encounter; F17.210 Nicotine dependence, cigarettes, uncomplicated; F12.90 Cannabis use, unspecified, uncomplicated; Y93.89 Activity, other specified; Y92.511 Restaurant or cafe as the place of occurrence of the external cause; Y99.0 Civilian activity done for income or pay
CPT/HCPCS: 73564; 99283; 99284

== ENCOUNTER 2022-12-25 13:39 | Outpatient (REF) | payer OTHER, SELFPAY ==
--- NOTE | ~2022-12-25 | MR_ITS ---
EXAMINATION: MR KNEE WITHOUT CONTRAST, LEFT CLINICAL INFORMATION: Left knee pain following injury. Multiple prior surgeries. COMPARISON: Most recent left knee radiographs dated 12/10/2022 and left knee MRI dated 07/26/2021. TECHNIQUE: MRI of the knee without contrast was performed using routine sequences on a high-field scanner. FINDINGS: MENISCI: Medial Meniscus: Significant attenuation of the medial meniscus including the body and posterior horn is redemonstrated with near-complete absence of the posterior body as well as mild, irregular inner margin flounce, similar when compared to the prior examination. Findings are consistent with prior meniscectomy. No new medial meniscal tear. Lateral Meniscus: Previously seen possible femoral articular surface tear appears more subtle on the current examination. No new lateral meniscal tear. LIGAMENTS: Cruciate: Postsurgical change consistent with anterior cruciate ligament reconstruction and interval revision when compared to the prior MRI. The ligament graft appears thickened with increased T2 signal consistent with graft degeneration. There is significant widening of the tibial tunnel with associated edema, consistent with graft degeneration. This measures up to 1.9 cm in AP dimension. Intact posterior cruciate ligament. Collateral: Intact. EXTENSOR MECHANISM: Intact. ARTICULAR CARTILAGE/BONE: Patellofemoral Compartment: Central trochlea and medial trochlear articular cartilage signal heterogeneity, similar when compared to the prior examination. Tiny marginal osteophytes. Medial Compartment: Posterior medial tibial plateau articular cartilage signal heterogeneity with areas of full-thickness loss and underlying subchondral cystic change, similar when compared to the prior examination. Interval resolution of the previously seen acute osseous injury. Tiny marginal osteophytes. Lateral Compartment: Intact articular cartilage. JOINT FLUID AND BURSAE: Small joint effusion. MR/MR knee LT wo con IMPRESSION: 1. Postsurgical change consistent with anterior cruciate ligament reconstruction and revision when compared to the prior MRI. The ligament graft appears thickened with increased T2 signal, consistent with graft degeneration. There is significant widening of the tibial tunnel with associated edema, consistent with graft degeneration. 2. Postsurgical change consistent with medial meniscectomy, similar when compared to the prior examination. No new meniscal tear. 3. Previously seen possible femoral articular surface tear of the lateral meniscus appears more subtle on the current examination. No new lateral meniscal tear. 4. Mild patellofemoral and medial compartment osteoarthritis, similar when compared to the prior examination. Small joint effusion.
== END 2022-12-25 13:40 | disposition home or self-care (01) ==
LOC: HO.MRI 13:39
PROVIDERS: Visit Provider Registered Nurse
DX: M25.562 Pain in left knee (principal)
CPT/HCPCS: 73721

== ENCOUNTER → 2023-01-17 10:49 | Outpatient (BNVA) | payer OTHER, SELFPAY | PROVIDERS: Visit Provider Orthopaedic Surgery | DX: Z98.890 Other specified postprocedural states (principal) | CPT/HCPCS: 99212 ==

== ENCOUNTER 2023-04-05 12:30 | Emergency (ER) | payer OTHER, SELFPAY ==
--- NOTE | ~2023-04-05 | US_ITS ---
EXAMINATION: US ABDOMEN LIMITED CLINICAL INFORMATION: Right upper quadrant/epigastric pain. COMPARISON: None available. TECHNIQUE: Real-time imaging of the right upper quadrant abdominal viscera. FINDINGS: PANCREAS: Normal. LIVER: Normal. The liver is normal in size. The liver contour is normal. Parenchymal echogenicity is normal. No focal hepatic lesion. There is no intrahepatic biliary duct dilatation seen. GALLBLADDER: Normal. The gallbladder is physiologically distended without evidence of stones, sludge, polyps, wall thickening or pericholecystic fluid. COMMON BILE DUCT: Normal in caliber measuring 0.3 cm in diameter. RIGHT KIDNEY: Normal. No hydronephrosis. No renal calculi or focal parenchymal lesions. The kidney measures 10 cm in maximum dimension. FREE FLUID: None. US/US abdomen limited IMPRESSION: Unremarkable exam.
--- NOTE | ~2023-04-05 | CT_ITS ---
EXAMINATION: CT ABDOMEN AND PELVIS WITH CONTRAST CLINICAL INFORMATION: Right upper quadrant and epigastric pain COMPARISON: Previous ultrasound from earlier the same day and CT of the abdomen and pelvis most recent December 2017 TECHNIQUE: Multidetector volumetric images were obtained from the superior aspect of the liver through the pubic symphysis following administration 85 mL of Omnipaque 350 intravenous contrast. Sagittal and coronal reformatted images were obtained on the technologist's workstation. Oral contrast: Yes This CT examination was performed using dose optimization techniques as appropriate, variously including the following: *Automated exposure control *Adjustment of mA and/or kV according to patient size (this includes techniques or standardized protocols for targeted exams where dose is matched to indication/reason for exam; i.e. extremities or head) *Use of iterative reconstruction technique DLP: 352 mGy-cm FINDINGS: LUNG BASES: The visualized lung bases are unremarkable. LIVER, GALLBLADDER, AND BILIARY TREE: The liver is normal in size, shape, and attenuation. No focal hepatic lesion or biliary ductal dilatation is present. The gallbladder is unremarkable with no evidence of radiopaque gallstones, gallbladder wall thickening, or obvious pericholecystic inflammatory changes. PANCREAS: Unremarkable. SPLEEN: Unremarkable. ADRENAL GLANDS: Unremarkable. KIDNEYS AND URETERS: The kidneys are normal in size, shape, and attenuation. No hydronephrosis, hydroureter, or calculi seen. No perinephric stranding. BLADDER: Unremarkable. GASTROINTESTINAL TRACT: The small and large bowel are unremarkable. The appendix is unremarkable. ABDOMINAL WALL: No significant hernia is appreciated. LYMPH NODES: Normal. VASCULAR: Unremarkable. PELVIC VISCERA: Unremarkable. OSSEOUS STRUCTURES: Unremarkable. CT/CT abdomen pelvis w IV con IMPRESSION: Unremarkable exam Fleischner guidelines were followed.
[2023-04-05 12:55] VITALS: BP 117/87; PULSE 83; RESP 18; TEMP 36.6; O2SAT 98; BMI 23.1
--- NOTE | 2023-04-05 12:59 | ED_ITS ---
HPI - General Adult General Chief complaint: Abdominal Pain Stated complaint: ABd pain/Diarhhea Time Seen by Provider: 04/05/23 13:51 Source: patient Mode of arrival: ambulatory Limitations: no limitations History of Present Illness HPI narrative: Patient is a 32-year-old male with history of asthma, migraines presenting the emergency department with diarrhea and right upper quadrant abdominal pain since last night. Describes his pain as constant but waxing and waning in intensity. States symptoms began after eating pork last night, states diarrhea was up to 10 times per hour overnight. Intermittent mild nausea, denies vomiting. Denies fever. Took Imodium to attempt to go to work today, diarrhea was persistent after 1st dose so patient took a 2nd dose and has not had diarrhea since that time. Denies any hematochezia or melena. Reports he recently took 2 courses of antibiotics for dental infection approximately 2-3 weeks ago. Denies dysuria, hematuria or other urinary symptoms. Denies chest pain, cough or dyspnea. MD complaint: Right upper quadrant abdominal pain, diarrhea Onset (ago): hour(s) Location: abdomen Radiation: non-radiation Severity: moderate Quality: constant Pain Consistency: colicky Relieving factors: none Exacerbating factors: none Associated symptoms: nausea/vomiting (Reports nausea, denies vomiting) Treatments prior to arrival: other (Imodium) Related Data Home Medications Medication Instructions Recorded Confirmed albuterol sulfate 90 mcg/actuation 2 puff PO Q4-6H PRN Wheezing 02/15/22 02/15/22 aerosol inhaler (ProAir HFA) cetirizine 10 mg tablet 1 tab PO DAILY 02/15/22 02/15/22 fluticasone propionate 50 2 spray intranasal DAILY 02/15/22 02/15/22 mcg/actuation nasal spray,suspension Previous Rx's Medication Instructions Recorded ibuprofen 600 mg tablet 600 mg PO Q8H PRN pain #20 tabs 07/06/21 docusate sodium 100 mg capsule 100 mg PO BID 30 days #60 caps 03/20/22 (Colace) benzonatate 100 mg capsule 100 mg PO TID PRN cough #20 caps 07/26/22 ondansetron 4 mg disintegrating 4 mg PO Q8H PRN nausea and 10/21/22 tablet vomiting #10 tabs oseltamivir 75 mg capsule (Tamiflu) 75 mg PO Q12H 5 days #10 caps 10/21/22 Allergies Allergy/AdvReac Type Severity Reaction Status Date / Time hazelnut [HAZELNUT] Allergy Unknown STOMACH Verified 04/05/23 12:55 PAIN mite-Dermatophagoides Allergy Unknown RASH Verified 04/05/23 12:55 farinae, gareth [DUST MITES] shellfish derived Allergy Unknown SWELLING Verified 04/05/23 12:55 [SHELLFISH DERIVED] sweet potato [SWEET POTATO] Allergy Unknown RASH, Verified 04/05/23 12:55 THROAT ITCH HEAT Allergy Intermediate ITCHY, Uncoded 01/17/23 10:59 DIFFICUTLY BREATHING TUNA FISH Allergy Unknown THROAT ITCH Uncoded 01/17/23 10:59 Review of Systems Review of Systems: As per HPI. Yes all other systems are reviewed and are negative Constitutional: Constitutional: Reports as per HPI [facility] Past Medical History Medical History (Updated 04/05/23 @ 16:55 by Oralia Nice NP) Asthma Left ACL tear Migraine Surgical History (Updated 01/17/23 @ 11:08 by Ho Nayak) History of repair of anterior cruciate ligament of left knee Social History Social History Alcohol intake: never Patient Tobacco Use Status: Current everyday Tobacco user Cigarettes Per Day: 10 Smoked in Last 30 Days: Yes Use of substances other than those prescribed or required for medical reasons: Yes Substance Use Type: Marijuana Advance Directives: No Advance Directives Information Provided: No Current occupational status: employed Current occupation: rt handed/manufacturing Physical Exam ED Vital Signs: Vital Signs - 24 hr 04/05/23 12:55 04/05/23 13:53 04/05/23 13:58 Temperature 97.9 F Pulse Rate 83 70 86 Respiratory Rate 18 18 18 Blood Pressure 117/87 123/83 115/75 Pulse Oximetry 98 98 96 Oxygen Delivery Method Room Air Room Air Room Air 04/05/23 16:09 Temperature Pulse Rate 70 Respiratory Rate 16 Blood Pressure 123/84 Pulse Oximetry 99 Oxygen Delivery Method Room Air BMI result Body Mass Index 23.1 Vital signs have been reviewed and appear to be correct. Blood pressure normal. Heart rate normal. Respiratory rate normal. Temperature normal. Oxygen saturation normal. Const General: cooperative, healthy appearing and no acute distress Orientation/consciousness: oriented to person, oriented to place, oriented to time and patient oriented x3 Limitations: no limitations HENMT Head: Yes normocephalic and Yes atraumatic Ears: external ears normal General nose exam: Normal external nose present Face and sinus: Yes face symmetric Mouth: oropharynx normal and moist mucous membranes Throat: Yes uvula midline Eyes Pupils: Equal, round and reactive pupils present Neck Neck: Yes normal visual inspection and Yes supple Resp Effort & Inspection: normal respiratory effort and able to speak in complete sentences Auscultation: clear to auscultation bilaterally Cardio Rate: regular rate Rhythm: regular rhythm Heart sounds: S1 normal heart sound present and S2 normal heart sound present GI Inspection: Yes normal to inspection Palpation (GI): Soft to palpation, Tenderness to palpation present (GI) in the RUQ, no guarding and No Rebound tenderness present Auscultation: normoactive bowel sounds General: Yes no CVA tenderness Back/Spine/Pelvis Back: no CVA tenderness Skin General skin exam: elasticity normal and turgor normal Neuro General: oriented to person, oriented to place, oriented to time, patient oriented x3, moves all extremities, no focal motor deficits and CN's II-XI intact bilaterally Cranial nerves: Yes Equal, round and reactive pupils present Cognition (Neuro): normal cognition Extrem General: Yes full ROM, Yes no pedal edema and Yes no calf tenderness Psych Mental Status: mental status grossly normal Affect: normal affect Thought process: Normal thought process present Course Course Course Narrative: This is an RME: Additional HPI, ROS, PE not included below will be deferred to primary provider. This is a 32-year-old with no known past medical history presenting to the emergency department with complaints of constant epigastric, RUQ pain since 2:00AM this morning and diarrhea. Denies any nausea or vomiting. No hx of abdominal surgeries in the past. No fevers or chills. No urinary symptoms. TTP in RUQ and epigastric region. Ate a large meal last night containing pork. VSS, pt afebrile. Plan: Labs and US RUQ ordered 16:50 FINDINGS: LUNG BASES: The visualized lung bases are unremarkable.? LIVER, GALLBLADDER, AND BILIARY TREE: The liver is normal in size, shape, and attenuation. No focal hepatic lesion or biliary ductal dilatation is present. The gallbladder is unremarkable with no evidence of radiopaque gallstones, gallbladder wall thickening, or obvious pericholecystic inflammatory changes.? PANCREAS: Unremarkable.? SPLEEN: Unremarkable.? ADRENAL GLANDS: Unremarkable.? KIDNEYS AND URETERS: The kidneys are normal in size, shape, and attenuation. No hydronephrosis, hydroureter, or calculi seen. No perinephric stranding. ? BLADDER: Unremarkable.? GASTROINTESTINAL TRACT: The small and large bowel are unremarkable. The appendix is unremarkable.? ABDOMINAL WALL: No significant hernia is appreciated.? LYMPH NODES: Normal. VASCULAR: Unremarkable. PELVIC VISCERA: Unremarkable.? OSSEOUS STRUCTURES: Unremarkable.? CT/CT abdomen pelvis w IV con IMPRESSION: Unremarkable exam ? Fleischner guidelines were followed. CT abd unremarkable. Feel symptoms are likely related to viral gastroenteritis. Patient unable to provide stool sample while in ED. Instructed patient to follow up with PCP within two days. All results discussed and all questions answered. Discussed with patient that he can use [id number] Imodium as needed for diarrhea, should ensure adequate intake of fluids with electrolytes, return precautions discussed at bedside and patient agreeable to plan. Medications Administered Discontinued Medications Generic Name Dose Route Start Last Admin Trade Name Freq PRN Reason Stop Dose Admin Iohexol 100 ml 04/05/23 16:01 04/05/23 16:02 Iohexol 350 Mg/Ml 100 Ml Infus..Btl IV 04/05/23 16:02 85 ml ONCE ONE Administration Medical Decision Making Medical Decision Making [facility] Narrative: Patient is a 32-year-old male with history of asthma, migraines presenting the emergency department with diarrhea and right upper quadrant abdominal pain since last night. On exam patient is awake, A&O x3, vital signs within normal limits, abdomen soft, tender to palpation right upper quadrant, patient has not had further episodes of diarrhea since arriving to the emergency department. Reported history and exam concerning for cholangitis, cholecystitis, pancreati tis, GERD, viral gastroenteritis, C. diff. Unlikely ACS, pneumonia. Labs ordered in triage remarkable for elevated lipase, ultrasound negative for acute findings. Will obtain EKG, order GI panel as well as C diff given recent antibiotic use, CT abdomen pelvis and added magnesium level. Please refer to course for remaining clinical decision-making. Differential Diagnosis Differential Diagnoses: The differential diagnosis associated with the presentation includes As above. Lab Data [facility] Lab Attestation statement: I reviewed the patient's lab results. 04/05/23 13:16 04/05/23 13:16 Labs: Lab Results 04/05/23 04/05/23 Range/Units 13:16 13:16 WBC 9.6 (4.8-10.8) X10*3/uL RBC 4.68 (4.60-5.80) X10*6/uL Hgb 14.5 (14.0-18.0) g/dl Hct 42.6 (42.0-52.0) % MCV 91.0 (80.0-98.0) fL MCH 31.0 (27.0-33.0) pg MCHC 34.0 (31.0-36.0) g/dl RDW 12.4 (11.0-16.0) % Plt Count 339 (160-400) X10*3/uL MPV 9.0 L (9.4-12.4) fL Immature Gran % (Auto) 0.5 H (0.0-0.4) % Neut % (Auto) 50.8 (45-73) % Lymph % (Auto) 35.2 (20-40) % Gu[place]upe % (Auto) 8.5 (2-11) % Eos % (Auto) 4.1 H (0-4) % Baso % (Auto) 0.9 (0-2) % Lymph # (Auto) 3.4 (1.2-4.9) X10*3/uL [place]upe # (Auto) 0.8 (0.1-1.2) X10*3/uL Eos # (Auto) 0.4 (0.0-0.4) X10*3/uL Baso # (Auto) 0.1 (0.0-0.2) X10*3/uL Abs Immat Gran (auto) 0.05 H (0.00-0.03) X10*3/uL Absolute Neuts (auto) 4.9 (2.0-8.3) x10*3/uL Absolute Nucleated RBC 0.000 (0.0-0.012) X10*3/uL Nucleated RBC % (auto) 0.0 (0.0-0.2) /100WBC Sodium 141 (135-145) mmol/L Potassium 4.3 (3.3-5.1) mmol/L Chloride 103 (96-108) mmol/L Carbon Dioxide 30 H (22-29) mmol/L Anion Gap 12 (12-20) BUN 12 (9-16) mg/dL Creatinine 0.93 (0.5-1.4) mg/dL Estim Creat Clear Calc 105.6 Estimated GFR > 60 Random Glucose 87 (60-115) mg/dL Calcium 9.7 (8.4-10.2) mg/dL Magnesium 2.1 (1.6-2.6) mg/dL Total Bilirubin 0.3 (0.0-1.0) mg/dL Direct Bilirubin 0.1 (0.0-0.5) mg/dL AST 24 (5-37) U/L ALT 33 (0-40) U/L Alkaline Phosphatase 94 (39-117) U/L Total Protein 7.2 (6.5-8.0) g/dL Albumin 4.5 (3.5-5.0) g/dL Lipase 118 H (8-78) U/L Independent Interpretation I performed an independent interpretation of an: EKG and Ultrasound Interpretation: I independently reviewed the ultrasound and agree with the radiologist's interpretation. EKG: normal sinus rhythm, rate 64, normal MN interval Radiology Impression Discussion of test interpretation with radiology: I have reviewed the radiologist's reading. Radiologist Impression: FINDINGS: PANCREAS: Normal. LIVER: Normal. The liver is normal in size. The liver contour is normal. Parenchymal echogenicity is normal. No focal hepatic lesion. There is no intrahepatic biliary duct dilatation seen. GALLBLADDER: Normal. The gallbladder is physiologically distended without evidence of stones, sludge, polyps, wall thickening or pericholecystic fluid. COMMON BILE DUCT: Normal in caliber measuring 0.3 cm in diameter. RIGHT KIDNEY: Normal. No hydronephrosis. No renal calculi or focal parenchymal lesions. The kidney measures 10 cm in maximum dimension. FREE FLUID: None. US/US abdomen limited IMPRESSION: External Record Review External record reviewed: Inpatient record, Office record and Outpatient record Discharge Plan Discharge Clinical Impression: Viral gastroenteritis Patient Disposition: Home, Self-Care Instructions: Acute Diarrhea (ED) Additional Instructions: You have been evaluated in the emergency department today for abdominal pain and diarrhea. Your evaluation suggests that your symptoms are most likely due to a viral illness which will improve on it's own with rest and fluids. Remember to drink plenty of fluids with electrolytes at home. Examples of this are Gatorade, Powerade, and Pedialyte. Please follow up with your primary care provider within two days. Return to the emergency department if you experience worsening or uncontrolled pain, inability to tolerate fluids by mouth, difficulty breathing, fevers 100.4? F or greater, recurrent vomiting, or any other concerning symptoms. Prescriptions: No Action docusate sodium [Colace] 100 mg capsule 100 mg PO BID 30 Days Qty: 60 0RF ibuprofen 600 mg tablet 600 mg PO Q8H PRN (Reason: pain) Qty: 20 0RF cetirizine 10 mg tablet 1 tab PO DAILY albuterol sulfate [ProAir HFA] 90 mcg/actuation HFA aerosol inhaler 2 puff PO Q4-6H PRN (Reason: Wheezing) fluticasone propionate 50 mcg/actuation spray,suspension 2 spray intranasal DAILY benzonatate 100 mg capsule 100 mg PO TID PRN (Reason: cough) Qty: 20 0RF oseltamivir [Tamiflu] 75 mg capsule 75 mg PO Q12H 5 Days Qty: 10 0RF ondansetron 4 mg tablet,disintegrating 4 mg PO Q8H PRN (Reason: nausea and vomiting) Qty: 10 0RF
[2023-04-05 13:21] LABS: MANUAL DIFF FLAG NO
[2023-04-05 13:22] LABS: Basophils Absolute Auto 0.1 X10*3/uL (0.0-0.2); Basophils Percent Auto 0.9 % (0-2); Eosinophils Absolute Auto 0.4 X10*3/uL (0.0-0.4); Eosinophils Percent Auto 4.1 % (0-4); Hematocrit 42.6 % (42.0-52.0); Hemoglobin 14.5 g/dl (14.0-18.0); Imm Gran Abs Auto 0.05 X10*3/uL (0.00-0.03); Imm Gran Pct Auto 0.5 % (0.0-0.4); Lymphocytes Absolute Auto 3.4 X10*3/uL (1.2-4.9); Lymphocytes Percent Auto 35.2 % (20-40); Monocytes Absolute Auto 0.8 X10*3/uL (0.1-1.2); Monocytes Percent Auto 8.5 % (2-11); Neutrophils Absolute Auto 4.9 x10*3/uL (2.0-8.3); Neutrophils Percent Auto 50.8 % (45-73); Platelet Count 339 X10*3/uL (160-400); Red Blood Count 4.68 X10*6/uL (4.60-5.80); Red Cell Distribution Width 12.4 % (11.0-16.0); White Blood Count 9.6 X10*3/uL (4.8-10.8)
[2023-04-05 13:37] LABS: Alanine Aminotransferase 33 U/L (0-40); Albumin Level 4.5 g/dL (3.5-5.0); Alkaline Phosphatase 94 U/L (39-117); Anion Gap 12 (12-20); Aspartate Amino Transferase 24 U/L (5-37); Bilirubin Direct 0.1 mg/dL (0.0-0.5); Bilirubin Total 0.3 mg/dL (0.0-1.0); Blood Urea Nitrogen 12 mg/dL (9-16); Calcium 9.7 mg/dL (8.4-10.2); Carbon Dioxide 30 mmol/L (22-29); Chloride 103 mmol/L (96-108); Creatinine Clr Calc Pharmacy 105.6; Estimated Glomerular Filt Rate > 60; Glucose Random 87 mg/dL (60-115); Lipase 118 U/L (8-78); Magnesium 2.1 mg/dL (1.6-2.6); Potassium 4.3 mmol/L (3.3-5.1); Sodium 141 mmol/L (135-145); Total Protein 7.2 g/dL (6.5-8.0)
[2023-04-05 13:53] VITALS: BP 123/83; PULSE 70; RESP 18; O2SAT 98
[2023-04-05 13:58] VITALS: BP 115/75; PULSE 86; RESP 18; O2SAT 96
--- NOTE | 2023-04-05 14:14 | PC.NURSE ---
Alert and oriented. Arrived from home stating that he is having 10/10 stomach pain. Last night at pork that he believes has caused the pain however his entire family also ate the pork and they are all fine. Denies chest gardner or sob. Center of abdomen tender to touch. Denies diarrhea or vomiting but states that he does have some nausea. VSS.
--- NOTE | 2023-04-05 15:32 | ECG_ITS ---
Test Reason : EPIGASTRIC PAIN Blood Pressure : / mmHG Vent. Rate : 064 BPM Atrial Rate : 064 BPM P-R Int : 150 ms QRS Dur : 072 ms QT Int : 392 ms P-R-T Axes : 000 123 124 degrees QTc Int : 404 ms Limb lead reversal Normal sinus rhythm Left posterior fascicular block Nonspecific ST abnormality Abnormal ECG When compared with ECG of 15-OCT-2013 17:59, Left posterior fascicular block is now Present Non-specific change in ST segment in Lateral leads Referred By: Oralia Nice Electronically Signed By:Adan Cuevas
[2023-04-05] MEDS: iohexoL 350 MG/ML 100 ML INFUS..BTL IV (16:02)
[2023-04-05 16:09] VITALS: BP 123/84; PULSE 70; RESP 16; O2SAT 99
--- NOTE | 2023-04-05 17:00 | PC.NURSE ---
Alert and oriented. Reviewed discharge instruction with patient who verbalized understanding
== END 2023-04-05 17:00 | disposition home or self-care (01) ==
PROVIDERS: Physician Assistant Medical; Emergency Provider Internal Medicine
DX: A08.4 Viral intestinal infection, unspecified (principal); R10.13 Epigastric pain; R11.2 Nausea with vomiting, unspecified; R94.31 Abnormal electrocardiogram [ECG] [EKG]; F17.210 Nicotine dependence, cigarettes, uncomplicated; Z71.6 Tobacco abuse counseling; Z79.899 Other long term (current) drug therapy
CPT/HCPCS: 36415; 74177; 76705; 80048; 80076; 83690; 83735; 85025; 93005; 99284; Q9967

== ENCOUNTER 2023-06-08 05:39 | Emergency (ER) | payer OTHER, SELFPAY ==
[2023-06-08 05:52] VITALS: BP 111/63; PULSE 71; RESP 18; TEMP 36.6; O2SAT 100; BMI 22.7
--- NOTE | 2023-06-08 06:56 | ED_ITS ---
HPI - Back Pain/Injury General Chief Complaint: Back Pain/Injury Stated Complaint: Lower back pain Time Seen by Provider: 06/08/23 06:55 Source: patient, RN notes reviewed and old records reviewed Mode of arrival: ambulatory Limitations: no limitations History of Present Illness HPI Narrative: 32-year old male with PMHx of migraine and asthma, presents to the ED today complaining of constant bilateral low back pain with radiation/ intermittent numbness down the left LE x24 hours s/p bending over to grab something while at work. Pain is worse with movement/ lying/ standing. Reports taking Ibuprofen without relief, last dose 5 hours ago. Able to ambulate with discomfort. Denies trauma/ injury, saddle paresthesias, bowel/bladder incontinence or retention, fever/chills, CP/SOB, N/V, or diarrhea. denies direct injury/trauma or fall MD elicited complaint: back pain Related Data Home Medications Medication Instructions Recorded Confirmed albuterol sulfate 90 mcg/actuation 2 puff PO Q4-6H PRN Wheezing 02/15/22 02/15/22 aerosol inhaler (ProAir HFA) cetirizine 10 mg tablet 1 tab PO DAILY 02/15/22 02/15/22 fluticasone propionate 50 2 spray intranasal DAILY 02/15/22 02/15/22 mcg/actuation nasal spray,suspension Previous Rx's Medication Instructions Recorded ibuprofen 600 mg tablet 600 mg PO Q8H PRN pain #20 tabs 07/06/21 docusate sodium 100 mg capsule 100 mg PO BID 30 days #60 caps 03/20/22 (Colace) benzonatate 100 mg capsule 100 mg PO TID PRN cough #20 caps 07/26/22 ondansetron 4 mg disintegrating 4 mg PO Q8H PRN nausea and 10/21/22 tablet vomiting #10 tabs oseltamivir 75 mg capsule (Tamiflu) 75 mg PO Q12H 5 days #10 caps 10/21/22 cyclobenzaprine 5 mg tablet 5 mg PO Q8H PRN pain (scale score 06/08/23 7-10) 5 days #14 tabs ketorolac 10 mg tablet 10 mg PO TID PRN pain 5 days #15 06/08/23 tabs lidocaine 5 % topical patch 1 patch topical DAILY PRN pain #30 06/08/23 (Lidoderm) ea Allergies Allergy/AdvReac Type Severity Reaction Status Date / Time hazelnut [HAZELNUT] Allergy Unknown STOMACH Verified 04/05/23 12:55 PAIN mite-Dermatophagoides Allergy Unknown RASH Verified 04/05/23 12:55 farinae, gareth [DUST MITES] shellfish derived Allergy Unknown SWELLING Verified 04/05/23 12:55 [SHELLFISH DERIVED] sweet potato [SWEET POTATO] Allergy Unknown RASH, Verified 04/05/23 12:55 THROAT ITCH HEAT Allergy Intermediate ITCHY, Uncoded 01/17/23 10:59 DIFFICUTLY BREATHING TUNA FISH Allergy Unknown THROAT ITCH Uncoded 01/17/23 10:59 Review of Systems Review of Systems: Constitutional: No Fever, No Chills ENT/Mouth: No Hearing loss, No Ear Pain, No Nasal Congestion Eyes: No Eye Pain, No Swelling, No Redness Cardiovascular: No Chest Pain, No SOB Respiratory: No Cough, No Sputum, No Dyspnea Gastrointestinal: No Nausea, No Vomiting, No Diarrhea, No Constipation, No Abdominal pain Genitourinary: No Dysuria, No Urinary Frequency, No Hematuria, No Urinary In continence/retention Musculoskeletal: + joint pain, No Myalgias, No Joint Swelling Skin: No Skin Lesions, No rash Neuro: No Weakness, No Numbness, + Paresthesias, No Loss of Consciousness, No Dizziness, No Headache Yes all other systems are reviewed and are negative Constitutional: Constitutional: Reports as per [facility] Past Medical History Attestation statement: The following information was validated with the patient. Source: old records reviewed Medical History Asthma Left ACL tear Migraine Surgical History History of repair of anterior cruciate ligament of left knee Social History Social History Alcohol intake: never Patient Tobacco Use Status: Current everyday Tobacco user Cigarettes Per Day: 10 Smoked in Last 30 Days: Yes Use of substances other than those prescribed or required for medical reasons: Yes Substance Use Type: Marijuana Advance Directives: No Advance Directives Information Provided: Yes Current occupational status: employed Current occupation: rt handed/manufacturing Physical Exam Vital Signs: Vital Signs: Last Vital Signs Temp 97.8 F 06/08/23 05:52 Pulse 71 06/08/23 05:52 Resp 18 06/08/23 05:52 BP 111/63 06/08/23 05:52 Pulse Ox 100 06/08/23 05:52 O2 Del Method Room Air 06/08/23 05:52 BMI result Body Mass Index 22.7 Const: General: cooperative, healthy appearing, no acute distress, alert and awake Orientation/consciousness: patient oriented x3 Limitations: no limitations HEENT: Head: Yes normal to inspection and Yes atraumatic Ears: hearing grossly normal bilaterally General nose exam: Normal external nose present Face and sinus: Yes normal facial exam Eyes: General: appearance normal, both eyes and all related structures EOM: EOMs intact bilaterally Neck: Neck: Yes normal visual inspection and Yes no meningeal signs Resp: Effort & Inspection: normal respiratory effort and no respiratory distress Auscultation: clear to auscultation bilaterally Cardio: Rate: regular rate Heart sounds: S1 normal heart sound present and S2 normal heart sound present GI: Inspection: Yes normal to inspection Palpation (GI): Soft to palpation, nontender, no guarding and not rigid Back/Spine/Pelvis: Other: No midline cervical/thoracic/lumbar spinous tenderness/step-off or deformity. + edema/ spasming noted to left lumbar region Thoracic/Lumbar Spine: straight leg raise negative bilaterally, No paraspinal muscle tenderness, No thoracic spinal tenderness and No lumbar spinal tenderness Skin: Rashes: no rashes Wounds: no wounds Neuro: Other: Strength intact throughout. No saddle anesthesia. Sensation intact to light touch. Neurovascular intact distally General: patient oriented x3, gait normal, tone normal, moves all extremities and no meningeal signs Cranial nerves: Yes CN's II-XII intact bilaterally Gait exam (Neuro): Normal gait present Motor exam (neuro): 5/5 motor strength present throughout Extrem: General: Yes normal to inspection Medications Administered Discontinued Medications Generic Name Dose Route Start Last Admin Trade Name Freq PRN Reason Stop Dose Admin Cyclobenzaprine HCl 10 mg 06/08/23 07:05 06/08/23 07:21 Cyclobenzaprine Hcl 10 Mg Tablet PO 06/08/23 07:06 10 mg ONCE ONE Administration Ketorolac Tromethamine 30 mg 06/08/23 07:05 06/08/23 07:19 Ketorolac Tromethamine 30 Mg/Ml Vial IM 06/08/23 07:06 30 mg ONCE ONE Administration Lidocaine 1 patch 06/08/23 07:05 06/08/23 07:20 Lidocaine 4 % Patch Adh..Patch TRANSDERMA 06/08/23 07:06 1 patch ONCE ONE Administration Protocol Medical Decision Making Medical Decision Making [facility] Narrative: 32-year old male with PMHx of migraine and asthma, presents to the ED today complaining of constant bilateral low back pain with radiation/ intermittent numbness down the left LE x24 hours s/p bending over to grab something while at work. Vital signs stable, NAD, nontoxic. Physical exam significant for swelling and spasming to the lower lumbar region. No midline spinous or paraspinous tenderness. NV intact distally. Strength intact throughout. No saddle paresthesias. Clinical concern for lumbar sprain/strain/spasming based on mechanism of action and presentation, imaging not indicated at this time. Lower suspicion for fracture. Unlikely cauda equina, cord compression, epidural abscess or renal stone Plan: pain control, PCP f/u Results discussed with patient including worrisome signs and symptoms and strict return precautions, and when to return to the emergency department. They verbalized understanding and feel safe for discharge at this time. Differential Diagnosis Differential Diagnoses: The differential diagnosis associated with the prese ntation includes As above External Record Review External record reviewed: Inpatient record, Office record, Outpatient record, Prior outpatient labs, Prior outpatient radiology, Primary care record and Outside ED record Tests considered The following testing was considered but not selected: As above Prescription Management I considered prescription management with: Pain Medication Discharge Plan Discharge Clinical Impression: Lumbar back pain Patient Disposition: Home, Self-Care Instructions: Back Pain (ED) Additional Instructions: Your pain is likely musculoskeletal Flexeril is a muscle relaxer, take at night as it makes you drowsy, do not drive, drink alcohol, or operate machinery while taking it Naproxen as an anti-inflammatory / pain medication, take with food Lidoderm patches are numbing patches, apply to painful area In addition take Tylenol at home If symptoms persist or worsen, pain becomes unbearable, you developed urinary retention or incontinence, or weakness return to the ED Prescriptions: New ketorolac 10 mg tablet 10 mg PO TID PRN (Reason: pain) 5 Days Qty: 15 0RF lidocaine [Lidoderm] 5 % adhesive patch,medicated 1 patch topical DAILY MDD remove after 12 hours PRN (Reason: pain) Qty: 30 0RF Rx Instructions: leave on most painful area for up to 12 hrs cyclobenzaprine 5 mg tablet 5 mg PO Q8H PRN (Reason: pain (scale score 7-10)) 5 Days Qty: 14 0RF No Action docusate sodium [Colace] 100 mg capsule 100 mg PO BID 30 Days Qty: 60 0RF ibuprofen 600 mg tablet 600 mg PO Q8H PRN (Reason: pain) Qty: 20 0RF cetirizine 10 mg tablet 1 tab PO DAILY albuterol sulfate [ProAir HFA] 90 mcg/actuation HFA aerosol inhaler 2 puff PO Q4-6H PRN (Reason: Wheezing) fluticasone propionate 50 mcg/actuation spray,suspension 2 spray intranasal DAILY benzonatate 100 mg capsule 100 mg PO TID PRN (Reason: cough) Qty: 20 0RF oseltamivir [Tamiflu] 75 mg capsule 75 mg PO Q12H 5 Days Qty: 10 0RF ondansetron 4 mg tablet,disintegrating 4 mg PO Q8H PRN (Reason: nausea and vomiting) Qty: 10 0RF Referrals: Physician,Unknown J [Primary Care Provider] - Stand Alone Forms: Work/School Release
[2023-06-08] MEDS: Ketorolac Tromethamine 30 MG/ML VIAL IM (07:19)
[2023-06-08] MEDS: Lidocaine 4 % Patch ADH..PATCH 1 PATCH TRANSDERMA (07:20)
[2023-06-08] MEDS: Cyclobenzaprine HCl 10 MG TABLET PO (07:21)
--- NOTE | 2023-06-08 07:25 | PC.NURSE ---
Pt reporting he bent over yesterday and felt a pull in his back. reporting numbness L leg. Pt reporting he has taken aspirin, APAP, and ibuprofen with no relief. Pt able to ambulate back to ED room slowly with no worsening of symptoms.
== END 2023-06-08 08:34 | disposition home or self-care (01) ==
PROVIDERS: Emergency Provider Emergency Medicine Emergency Medical Services
DX: M54.50 Low back pain, unspecified (principal); R20.0 Anesthesia of skin; G43.909 Migraine, unspecified, not intractable, without status migrainosus
CPT/HCPCS: 96372; 99284; J1885

== ENCOUNTER 2023-07-04 18:17 | Outpatient (REF) | payer OTHER, SELFPAY ==
[2023-07-04 19:29] LABS: Influenza A PCR NEGATIVE (Negative); Influenza B PCR NEGATIVE (Negative); Resp Syncy Virus RNA Qual PCR NEGATIVE (Negative); SARS COV2 PCR INHOUSE POSITIVE (Negative)
== END 2023-07-04 18:18 | disposition home or self-care (01) ==
LOC: HO.HHCLNP 18:17
PROVIDERS: Visit Provider Family Medicine
DX: Z20.822 Contact with and (suspected) exposure to COVID-19 (principal); J06.9 Acute upper respiratory infection, unspecified
CPT/HCPCS: 0241U

== ENCOUNTER 2024-10-27 08:31 | Emergency (ER) | payer OTHER, SELFPAY ==
--- OUTSIDE RECORDS SUMMARY | 2024-10-27 08:33 | XMS_ITS | Continuity of Care Document ---
Author Organization [facility] Address [address] [place] [id number] Phone Care Team Providers Care Audio Engineer Name Role Phone Chapo Benítez OD Unavailable Unavailable Allergies, Adverse Reactions, Alerts Substance Reaction Status Criticality No Known Allergies Active No Inform ation Medications Medication Instructions Dosage Effective Dates (start - stop) Status Comments No Drug Therapy Prescribed Advance Directives Directive Yes / No Effective Date File Name No Information Encounters Encounter Description Practice Location Reason(s) For Visit Diagnoses Date Provider Providers Copied on Encounter [facility], [address] [place] [address], [address] [place] [address], tel:[phone] [facility] Blurry vision (chief complaint) MYOPIA Jeyson Cowan. [address] [place] [address], [address] [place] [address], . tel:[phone] Referring Provider: Chapo Benítez OD [facility], [address] [place] [address], [id number]. tel:[phone] Family History Family Member Type Diagnosis Age At Onset Maternal grandmother Problem (finding) Diabetes mellit us Payers Payer name Insurance type Covered alliance party ID Authoriza tion(s) Vision Service Plan CI [id number] Social History Type Description Quantity Date Captured Comments Alcohol Use Details Caffeine Use Details coffee sometimes per day 015 Tobacco Use Status No Information Smoking Status Never smoker Non-Smoking Tobacco Use Details : No Details Available : No Details Available Sex Male Chief Complaint And Reason For Visit From encounter dated '07/02/2015 10:15'. Blurry vision (chief complaint). Description: The 24 year old male presents for evaluation of Blurry vision in the right eye and left eye. Pt has noticed that in the distance he has been squinting totry and focus. Reason For Referral Reason For Referral No Information History Of Present Illness Encounter Date Complaint History Of Prese nt Illness Blurry vision The 24 year old male presents for evaluation of Blurry vision in the right eye and left eye. Pt has noticed that in the distance he has been squinting to try and focus. Functional Status Date Functional Assessmen t No Information Medications Administered Medication Instructions Dosage Effective Dates (start - stop) Status Comments No Drug Therapy Prescribed Instructions Date Instruction Additional Infor rosario Return in 1 year with [facility] for Complete Eye Exam. Related to MYOPIA Impression/Plan - Re fractive error, patient has change. New glasses Rx given and recommend new glasses at this time. Related to MYOPIA Follow up - Return i n 1 year with Je[facility] for Complete Eye Exam. Related to MYOPIA Assessments Type Assessment Date assessment MYOPIA impression MYOPIA: 367.1. MYOPIA: 367.1. OU . Patient Care Teams Name Effective Dates (start - stop) Status Members No Information
[2024-10-27 08:34] VITALS: BP 154/99; PULSE 79; RESP 18; TEMP 36.1; O2SAT 100; BMI 27.6
--- NOTE | 2024-10-27 08:50 | ED_ITS ---
HPI - General Adult General Chief complaint: Back Pain/Injury Stated complaint: Back injury Time Seen by Provider: 10/27/24 08:50 Source: patient Mode of arrival: ambulatory Limitations: no limitations History of Present Illness ED Provider: Reena Sosa PA-C HPI narrative: Patient is a 33 year old assigned male at with a history of migraines and asthma presenting to the emergency department today with lower and mid back pain. Patient states that he was on his way to leave for work when he lifted his tool bag too quickly and immediately felt pain in his lower and mid back. Savannah melo denies any dizziness, lightheadedness, abdominal pain, nausea, vomiting, fever, chills, blurry vision, double vision, loss of vision, chest pain, difficulty breathing, shortness of breath, night sweats, pain with urination, increased urinary frequency, increased urinary urgency, blood in his urine or stool, syncope or a near syncopal episode, bowel incontinence, bladder incontinence, or any other complaints at this time. Relieving factors: none Exacerbating factors: none Associated symptoms: denies other symptoms Treatments prior to arrival: none Related Data Home Medications ?Medication ?Instructions ?Recorded ?Confirmed albuterol sulfate 90 mcg/actuation 2 puff PO Q4-6H PRN Wheezing 02/15/22 02/15/22 aerosol inhaler (ProAir HFA) cetirizine 10 mg tablet 1 tab PO DAILY 02/15/22 02/15/22 fluticasone propionate 50 2 spray intranasal DAILY 02/15/22 02/15/22 mcg/actuation nasal spray,suspension Previous Rx's ?Medication ?Instructions ?Recorded ibuprofen 600 mg tablet 600 mg PO Q8H PRN pain #20 tabs 07/06/21 docusate sodium 100 mg capsule 100 mg PO BID 30 days #60 caps 03/20/22 (Colace) benzonatate 100 mg capsule 100 mg PO TID PRN cough #20 caps 07/26/22 ondansetron 4 mg disintegrating 4 mg PO Q8H PRN nausea and 10/21/22 tablet vomiting #10 tabs oseltamivir 75 mg capsule (Tamiflu) 75 mg PO Q12H 5 days #10 caps 10/21/22 cyclobenzaprine 5 mg tablet 5 mg PO Q8H PRN pain (scale score 06/08/23 7-10) 5 days #14 tabs ketorolac 10 mg tablet 10 mg PO TID PRN pain 5 days #15 06/08/23 tabs lidocaine 5 % topical patch 1 patch topical DAILY PRN pain #30 06/08/23 (Lidoderm) ea cyclobenzaprine 5 mg tablet 5 mg PO TID PRN pain 7 days #21 10/27/24 tabs prednisone 20 mg tablet See Rx Instructions .Route 10/27/24 .COMPLEX 12 days #26 tabs Allergies Allergy/AdvReac Type Severity Reaction Status Date / Time hazelnut [HAZELNUT] Allergy Unknown STOMACH Verified 10/27/24 08:36 PAIN mite-Dermatophagoides Allergy Unknown RASH Verified 10/27/24 08:36 farinae, gareth [DUST MITES] shellfish derived Allergy Unknown SWELLING Verified 10/27/24 08:36 [SHELLFISH DERIVED] sweet potato [SWEET POTATO] Allergy Unknown RASH, Verified 10/27/24 08:36 THROAT ITCH HEAT Allergy Intermediate ITCHY, Uncoded 10/27/24 08:36 DIFFICUTLY BREATHING TUNA FISH Allergy Unknown THROAT ITCH Uncoded 10/27/24 08:36 Review of Systems Constitutional: Constitutional: Reports no additional constitutional complaints, Denies chills, Denies fever(s) and Denies night sweats Eyes: Eyes: Reports no additional eye complaints, Denies blurry vision, Denies change in vision, Denies diplopia, Denies eye discharge, Denies loss of vision and Denies eye pain ENT: Denies dizziness Cardiovascular: Cardiovascular: Reports no additional cardiovascular complaints, Denies chest pain, Denies lightheadedness, Denies Loss of Consciousness and Denies dyspnea Respiratory: Respiratory: Reports no additional respiratory complaints and Denies dyspnea Gastrointestinal: Gastrointestinal: Reports no additional gastrointestinal complaints, Denies abdominal pain, Denies melena, Denies hematochezia, Denies change in bowel habits and Denies change in stool character Genitourinary: Genitourinary: Reports no additional male genitourinary complaints, Denies hematuria, Denies oliguria, Denies difficulty urinating, Denies dysuria, Denies urinary frequency, Denies urinary hesitancy, Denies urinary incontinence and Denies urinary urgency Musculoskeletal: Musculoskeletal: Reports no additional musculoskeletal complaints, Reports back pain, Denies numbness and Denies tingling Comments: lower and mid back pain Neurologic: Denies dizziness, Denies loss of vision, Denies numbness and Denies tingling Psychiatric: Psychiatric: Reports no additional psychiatric complaints Endocrine: Endocrine: Reports no additional endocrine complaints Hematologic/Lymphatic: Hematologic/Lymphatic: Reports no additional hematologic/lymphatic complaints Allergic/Immunologic: Allergic/Immunologic: Reports no additional allergic/immunologic complaints [facility] Past Medical History Attestation statement: The following information was validated with the patient. Source: old records reviewed and nursing notes reviewed Medical History Migraine Asthma Left ACL tear Surgical History History of repair of anterior cruciate ligament of left knee Social History Social History Alcohol intake: never Patient Tobacco Use Status: Current everyday Tobacco user Cigarettes Per Day: 10 Substance Use Type: Marijuana Advance Directives: No Advance Directives Information Provided: Yes Current occupational status: employed Current occupation: rt handed/manufacturing Physical Exam ED Vital Signs: Vital Signs - 24 hr 10/27/24 08:34 10/27/24 09:26 Temperature 97 F 97.2 F Pulse Rate 79 76 Respiratory Rate 18 18 Blood Pressure 154/99 H 151/89 H Pulse Oximetry 100 99 Oxygen Delivery Method Room Air Room Air BMI result Body Mass Index 27.6 Const General: cooperative, no acute distress, alert and awake Nutritional Appearance: well nourished Orientation/consciousness: patient oriented x3 Limitations: no limitations HENMT Head: Yes normal to inspection and Yes atraumatic Ears: hearing grossly normal bilaterally and external ears normal General nose exam: Normal external nose present, no nasal discharge noted and no epistaxis Face and sinus: Yes normal facial exam, No abrasion and No laceration Mouth: Normal oral and palatal mucosa present, no drooling and no muffled voice Eyes General: appearance normal, both eyes and all related structures Periorbital: periorbital findings normal Eyelids: Yes eyelids normal Conjunctivae: conjunctivae normal Pupils: Equal, round and reactive pupils present EOM: EOMs intact bilaterally Neck Neck: Yes normal visual inspection, Yes full ROM and Yes no lymphadenopathy Chest Chest palpation & inspection: normal inspection of the chest Resp Effort & Inspection: normal respiratory effort and able to speak in complete sentences GI Inspection: Yes normal to inspection Back/Spine/Pelvis Cervical Spine: normal cervical lordosis Thoracic/Lumbar Spine: thoracic and lumbar spine normal to inspection Neuro General: patient oriented x3 and moves all extremities Cranial nerves: Yes Equal, round and reactive pupils present Cognition (Neuro): normal cognition Extrem General: Yes normal to inspection, Yes full ROM and Yes capillary refill normal Psych Appearance: grossly normal Mental Status: mental status grossly normal Affect: normal affect Attitude: cooperative Thought process: Normal thought process present Thought content: Normal thought content present Insight: Good insight present (Psych) Medications Administered Discontinued Medications Generic Name Dose Route Start Last Admin Trade Name Stephon PRN Reason Stop Dose Admin Cyclobenzaprine HCl 5 mg 10/27/24 08:57 10/27/24 09:15 Cyclobenzaprine Hcl 5 Mg Tablet PO 10/27/24 08:58 5 mg ONCE ONE Administration Ketorolac Tromethamine 15 mg 10/27/24 08:57 10/27/24 09:16 Ketorolac Tromethamine 15 Mg/Ml Vial IM 10/27/24 08:58 15 mg ONCE ONE Administration Methylprednisolone Sodium Succinate 60 mg 10/27/24 08:57 10/27/24 09:15 Methylprednisolone Sod Succ 125 Mg/2 Ml Vial IM 10/27/24 08:58 60 mg ONCE ONE Administration Medical Decision Making Medical Decision Making [facility] Narrative: Patient is a 33 year old assigned male at with a history of migraines and asthma presenting to the emergency department today with low and mid back pain. Patient's physical exam was unremarkable. I explained my physical exam findings to the patient. I answered all questions asked by the patient. I stressed the importance of the patient taking his medication as directed (either prescribed or as the over the counter packaging recommends). I stressed the importance of the patient following up with his primary care provider. I stressed the importance of the patient returning to the emergency department immediately if his symptoms were to worsen or if he were to develop any dizziness, shortness of breath, difficulty breathing, chest pain, blurry vision, loss of vision, nausea, vomiting, abdominal pain, fever, chills, back pain, or any other complaints. Patient verbalized agreement and understanding with this treatment plan and discharge. Differential Diagnosis Differential Diagnoses: The differential diagnosis associated with the presentation includes Low back pain Mid back pain Lumbar sprain Lumbar strain Thoracic strain Admission/Observation Consideration of admission/observation: Escalation of care including admission/observation considered Patient would have been admitted to the hospital had his clinical presentation warranted hospital admission. Tests considered The following testing was considered but not selected: I considered obtaining an x-ray of the lumbar and thoracic spines however, the patient's current clinical presentation and mechanism of injury did not warrant this. I discussed this with the patient who verbalized understanding and agre ement. Prescription Management I considered prescription management with: Pain Medication (patient prescribed pain medication) Discharge Plan Discharge Clinical Impression: Strain of lumbar spine, Strain of thoracic spine Patient Disposition: Home, Self-Care Instructions: Muscle Strain (DC), Low Back Strain (ED), Lower Back Exercises (ED) Additional Instructions: Follow up with your primary care provider. Return to the emergency department immediately if your symptoms worsen or if you develop any dizziness, shortness of breath, difficulty breathing, chest pain, blurry vision, loss of vision, nausea, vomiting, abdominal pain, fever, chills, back pain, or any other complaints. Prescriptions: New cyclobenzaprine 5 mg tablet 5 mg PO TID PRN (Reason: pain) 7 Days Qty: 21 0RF prednisone 20 mg tablet See Rx Instructions .ROUTE .COMPLEX 12 Days Qty: 26 0RF Rx Instructions: 20 mg orally, Take 3 tablets for 5 days THEN; Take 2 tablets for 4 days THEN; Take 1 tablet for 3 days No Action docusate sodium [Colace] 100 mg capsule 100 mg PO BID 30 Days Qty: 60 0RF ibuprofen 600 mg tablet 600 mg PO Q8H PRN (Reason: pain) Qty: 20 0RF cetirizine 10 mg tablet 1 tab PO DAILY albuterol sulfate [ProAir HFA] 90 mcg/actuation HFA aerosol inhaler 2 puff PO Q4-6H PRN (Reason: Wheezing) fluticasone propionate 50 mcg/actuation spray,suspension 2 spray intranasal DAILY benzonatate 100 mg capsule 100 mg PO TID PRN (Reason: cough) Qty: 20 0RF oseltamivir [Tamiflu] 75 mg capsule 75 mg PO Q12H 5 Days Qty: 10 0RF ondansetron 4 mg tablet,disintegrating 4 mg PO Q8H PRN (Reason: nausea and vomiting) Qty: 10 0RF ketorolac 10 mg tablet 10 mg PO TID PRN (Reason: pain) 5 Days Qty: 15 0RF lidocaine [Lidoderm] 5 % adhesive patch,medicated 1 patch topical DAILY MDD remove after 12 hours PRN (Reason: pain) Qty: 30 0RF Rx Instructions: leave on most painful area for up to 12 hrs cyclobenzaprine 5 mg tablet 5 mg PO Q8H PRN (Reason: pain (scale score 7-10)) 5 Days Qty: 14 0RF Referrals: [facility] [Provider Group] (Call to establish and follow up with a primary care provider. If you already have a primary care provider, please follow up with them.) [facility] Primary Care, Ron [Provider Group] (Call to establish and follow up with a primary care provider. If you already have a primary care provider, please follow up with them.) [facility] Primary Care,Yovany [Provider Group] (Call to establish and follow up with a primary care provider. If you already have a primary care provider, please follow up with them.) Stand Alone Forms: Work/School Release Interventions: ED Discharge Assessment Last Done: 10/27/24 09:26 Discharge Date/Time: 10/27/24 09:26 Print Language: Israeli
--- OUTSIDE RECORDS SUMMARY | 2024-10-27 08:54 | XMS_ITS | Continuity of Care Document ---
Author Organization [facility] Address [address] [place] [id number] Phone Care Team Providers Care Sprayer Leather Name Role Phone Chapo Benítez OD Unavailable [...] Diagnoses Date Provider Providers Copied on Encounter [facility], [address] [place] [address], [address] [place] [address], tel:[phone] [facility] Blurry vision (chief complaint) MYOPIA Jeyson Cowan. [address] [place] [address], [address] [place] [address], . tel:[phone] Referring Provider: Chapo Benítez OD [facility], [address] [place] [address], [id number]. tel:[phone] Family History Family Member Type Diagnosis Age At Onset Maternal grandmother Problem (finding) Diabetes mellit us Payers Payer name Insurance type Covered green party ID Authoriza tion(s) Vision Service Plan CI [id number] Social History Type Description Quantity Date Captured [...]
[2024-10-27] MEDS: methylPREDNISolone Sod Succ 125 MG/2 ML VIAL 60 MG IM (09:15)
[2024-10-27] MEDS: Cyclobenzaprine HCl 5 MG TABLET PO (09:15)
[2024-10-27] MEDS: Ketorolac Tromethamine 15 MG/ML VIAL IM (09:16)
--- NOTE | 2024-10-27 09:25 | PC.NURSE ---
pt medicated per order
[2024-10-27 09:26] VITALS: BP 151/89; PULSE 76; RESP 18; TEMP 36.2; O2SAT 99
== END 2024-10-27 09:26 | disposition home or self-care (01) ==
PROVIDERS: Emergency Provider Emergency Medicine
DX: S39.012A Strain of muscle, fascia and tendon of lower back, initial encounter (principal); S29.012A Strain of muscle and tendon of back wall of thorax, initial encounter; X58.XXXA Exposure to other specified factors, initial encounter; Y93.89 Activity, other specified; Y92.89 Other specified places as the place of occurrence of the external cause; Y99.8 Other external cause status; Z79.899 Other long term (current) drug therapy
CPT/HCPCS: 96372; 99283; 99284; J1885; J2919

== ENCOUNTER 2025-07-03 21:46 | Emergency (ER) | payer OTHER, SELFPAY ==
[2025-07-03 21:53] VITALS: BP 119/80; PULSE 84; RESP 20; TEMP 37; O2SAT 98; BMI 22.5
[2025-07-04 00:42] VITALS: BP 119/82; PULSE 64; RESP 16; TEMP 36.6; O2SAT 97
--- NOTE | 2025-07-04 00:48 | ED.GENADULT ---
HPI - General Adult General Chief complaint: Animal Bite Stated complaint: left hand bite while fishing Time Seen by Provider: 07/04/25 00:36 Source: patient Mode of arrival: ambulatory Limitations: no limitations History of Present Illness HPI narrative: This is 34 years old male presented to the emergency department stating that he [place] river and he had a possible insect bite in the left middle finger. About 4 hours later felt some nausea shakiness he stated that he is finger was red and swollen. The patient has no comorbidity does not take any medicine Onset (ago): hour(s) (5) Location: upper extremity (Left hand (middle finger)) Radiation: non-radiation Severity: mild Quality: burning Exacerbating factors: none Associated symptoms: denies other symptoms Related Data Home Medications ?Medication ?Instructions ?Recorded ?Confirmed albuterol sulfate 90 mcg/actuation 2 puff PO Q4-6H PRN Wheezing 02/15/22 02/15/22 aerosol inhaler (ProAir HFA) cetirizine 10 mg tablet 1 tab PO DAILY 02/15/22 02/15/22 fluticasone propionate 50 2 spray intranasal DAILY 02/15/22 02/15/22 mcg/actuation nasal spray,suspension Previous Rx's ?Medication ?Instructions ?Recorded ibuprofen 600 mg tablet 600 mg PO Q8H PRN pain #20 tabs 07/06/21 docusate sodium 100 mg capsule 100 mg PO BID 30 days #60 caps 03/20/22 (Colace) benzonatate 100 mg capsule 100 mg PO TID PRN cough #20 caps 07/26/22 ondansetron 4 mg disintegrating 4 mg PO Q8H PRN nausea and 10/21/22 tablet vomiting #10 tabs oseltamivir 75 mg capsule (Tamiflu) 75 mg PO Q12H 5 days #10 caps 10/21/22 cyclobenzaprine 5 mg tablet 5 mg PO Q8H PRN pain (scale score 06/08/23 7-10) 5 days #14 tabs ketorolac 10 mg tablet 10 mg PO TID PRN pain 5 days #15 06/08/23 tabs lidocaine 5 % topical patch 1 patch topical DAILY PRN pain #30 06/08/23 (Lidoderm) ea cyclobenzaprine 5 mg tablet 5 mg PO TID PRN pain 7 days #21 10/27/24 tabs prednisone 20 mg tablet See Rx Instructions .Route 10/27/24 .COMPLEX 12 days #26 tabs cephalexin 500 mg capsule 500 mg PO Q8H #21 caps 07/04/25 ondansetron 4 mg disintegrating 4 mg PO Q8H 4 days #12 tabs 07/04/25 tablet Allergies Allergy/AdvReac Type Severity Reaction Status Date / Time hazelnut (HAZELNUT) Allergy Unknown STOMACH Verified 07/03/25 21:53 PAIN mite-Dermatophagoides Allergy Unknown RASH Verified 07/03/25 21:53 farinae, gareth (DUST MITES) shellfish derived (SHELLFISH Allergy Unknown SWELLING Verified 07/03/25 21:53 DERIVED) sweet potato (SWEET POTATO) Allergy Unknown RASH, Verified 07/03/25 21:53 THROAT ITCH HEAT Allergy Intermediate ITCHY, Uncoded 07/03/25 21:53 DIFFICUTLY BREATHING TUNA FISH Allergy Unknown THROAT ITCH Uncoded 07/03/25 21:53 Review of Systems Constitutional: Constitutional: Reports no additional constitutional complaints Eyes: Eyes: Reports no additional eye complaints ENT: Reports system reviewed and no additional complaints, except as documented Cardiovascular: Cardiovascular: Reports no additional cardiovascular complaints [facility] Past Medical History Attestation statement: The following information was validated with the patient. Medical History Migraine Asthma Left ACL tear Surgical History History of repair of anterior cruciate ligament of left knee Social History Social History Alcohol intake: never Patient Tobacco Use Status: Current everyday Tobacco user Cigarettes Per Day: 10 Substance Use Type: Marijuana Advance Directives: No Advance Directives Information Provided: Yes Current occupational status: employed Current occupation: rt handed/manufacturing Physical Exam ED Exam Exam: He looks well is not toxic-appearing is sitting in in the stretcher comfortable Vital Signs: Vital Signs - 24 hr 07/03/25 21:53 07/04/25 00:42 Temperature 98.6 F 97.8 F Pulse Rate 84 64 Respiratory Rate 20 16 Blood Pressure 119/80 119/82 Pulse Oximetry 98 97 Oxygen Delivery Method Room Air Room Air BMI result Body Mass Index 22.5 His vitals are stable he is afebrile normotensive Const General: cooperative and comfortable Nutritional Appearance: well nourished Orientation/consciousness: patient oriented x3 Limitations: no limitations HENMT Head: Yes normal to inspection Face and sinus: Yes normal facial exam Neck Neck: Yes normal visual inspection Chest Chest palpation & inspection: normal inspection of the chest Resp Effort & Inspection: normal respiratory effort Auscultation: clear to auscultation bilaterally Cardio Jugular venous distension: no JVD Rate: regular rate Rhythm: regular rhythm GI Inspection: Yes normal to inspection Palpation (GI): Soft to palpation, not firm and nontender Auscultation: normal bowel sounds Skin General skin exam: no rashes or lesions noted and elasticity normal Neuro General: patient oriented x3 Cranial nerves: Yes CN's II-XII intact bilaterally Extrem Other: Examination of the left hand showed a very mild the with a finger mild redness Medications Administered Discontinued Medications Generic Name Dose Route Start Last Admin Trade Name Freq PRN Reason Stop Dose Admin Cephalexin HCl 500 mg 07/04/25 00:53 07/04/25 00:57 Cephalexin 500 Mg Capsule PO 07/04/25 00:54 500 mg ONCE ONE Administration Ondansetron HCl 4 mg 07/04/25 00:57 07/04/25 01:05 Ondansetron Odt 4 Mg Tab.Rapdis TRANSLINGU 07/04/25 00:58 4 mg ONCE ONE Administration Medical Decision Making Medical Decision Making [facility] Narrative: Patient is here for possible insect bite in the left middle finger, he is not toxic; blood pressure is normal;he is not tachycardic I do not think we need to do any blood work. I am going to treat him empirically with cephalexin he is comfortable with the plan of care Differential Diagnosis Differential Diagnoses: The differential diagnosis associated with the presentation includes Cellulitis/allergic reaction Admission/Observation Consideration of admission/observation: Escalation of care including admission/observation considered Discharge Plan Discharge Clinical Impression: Cellulitis of finger, left Patient Disposition: Home, Self-Care Instructions: Cellulitis (ED) Additional Instructions: Follow-up with your primary care physician return to the emergency room if you worse if you have fever any concern Prescriptions: New cephalexin 500 mg capsule 500 mg PO Q8H Qty: 21 0RF ondansetron 4 mg tablet,disintegrating 4 mg PO Q8H 4 Days Qty: 12 0RF No Action docusate sodium [Colace] 100 mg capsule 100 mg PO BID 30 Days Qty: 60 0RF ibuprofen 600 mg tablet 600 mg PO Q8H PRN (Reason: pain) Qty: 20 0RF cetirizine 10 mg tablet 1 tab PO DAILY albuterol sulfate [ProAir HFA] 90 mcg/actuation HFA aerosol inhaler 2 puff PO Q4-6H PRN (Reason: Wheezing) fluticasone propionate 50 mcg/actuation spray,suspension 2 spray intranasal DAILY benzonatate 100 mg capsule 100 mg PO TID PRN (Reason: cough) Qty: 20 0RF oseltamivir [Tamiflu] 75 mg capsule 75 mg PO Q12H 5 Days Qty: 10 0RF ondansetron 4 mg tablet,disintegrating 4 mg PO Q8H PRN (Reason: nausea and vomiting) Qty: 10 0RF cyclobenzaprine 5 mg tablet 5 mg PO TID PRN (Reason: pain) 7 Days Qty: 21 0RF prednisone 20 mg tablet See Rx Instructions .ROUTE .COMPLEX 12 Days Qty: 26 0RF Rx Instructions: 20 mg orally, Take 3 tablets for 5 days THEN; Take 2 tablets for 4 days THEN; Take 1 tablet for 3 days ketorolac 10 mg tablet 10 mg PO TID PRN (Reason: pain) 5 Days Qty: 15 0RF lidocaine [Lidoderm] 5 % adhesive patch,medicated 1 patch topical DAILY MDD remove after 12 hours PRN (Reason: pain) Qty: 30 0RF Rx Instructions: leave on most painful area for up to 12 hrs cyclobenzaprine 5 mg tablet 5 mg PO Q8H PRN (Reason: pain (scale score 7-10)) 5 Days Qty: 14 0RF Print Language: Macedonian
--- OUTSIDE RECORDS SUMMARY | 2025-07-04 00:48 | XMS_ITS | Encounter Summary ---
Author Organization [employer] Address [address] [place] [address] [address] [place] [address] Care Team Providers Care Hop Farm Worker Name Role Phone Riley Carballo ROADWAY DESIGNER Primary Care Provider Meirssa Dennis Primary Care Provider [phone] Kun Delgado DMD Unavailable Encounter Details Date Type Department Care Team ([facility] st Contact Info) Description 12/18/2022 Telephone [facility] [address] [place] [address] Riley Carballo FNP Social History Tobacco Use Types Packs/Day Years Used Date Smoking Tobacco: Every Day Cigarettes 0.5 10 Smokeless Tobacco: Never Alcohol Use Standard Drinks/Week Comments Never 0 (1 standard drink = 0.6 oz pur e alcohol) Sex and Gender Information Value Date Recorded Sex Assigned at Male 08/27/2022 10:18 AM EDT Legal Sex Male 10:18 AM EDT Gender Identity Male 08/27/2022 10:18 AM EDT Sexual Orientation Straight 08/27/2022 10 :18 AM EDT COVID-19 Exposure Response Date Recorded In the last 10 days, have yo u been in contact with someone who was confirmed or suspected to have Coronavirus/COVID-19? No / Unsure 12/13/2022 2:40 PM EST documented as of this encounter Plan of Treatment Not on file documented as of this encounter Visit Diagnoses Not on filedocumented in this encounter Care Teams Hop Farm Worker Relationship Specialty Start Date End Date Riley Carballo FNP PCP - General Family Medicine 12/12/22 12/26/22 Merissa Byers FNP [address] [place] [address] PCP - General Family Medicine 12/27/22 Kun Delgado DMD [address] [place] [address] Dental Knee Bolter 08/31/24 documented as of this encounter
--- OUTSIDE RECORDS SUMMARY | 2025-07-04 00:48 | XMS_ITS | Encounter Summary ---
Author Organization [employer] Address [address] [place] [address] [address] [place] [address] Care Team Providers Care Apple Solutions Consultant Name Role Phone Merissa Byers [facility] Primary Care Provider [phone] HayderKun laboy DMD Unavailable Reason for Visit * Reason Onset Date Comments Appointment Request 05/07/2023 Encounter Details Date Type Department Care Team ([facility] st Contact Info) Description 05/07/2023 Telephone [facility]EDS [address] [place], [place] [id number] [place], [facility] [address] [place] [address] Appointment Request Social History Tobacco Use Types Packs/Day Years [...] suspected to have Coronavirus/COVID-19? No / Unsure 04/25/2023 2:25 PM EDT documented as of this encounter Miscellaneous Notes * Telephone Encounter - Mariela Fowler RN - 05/08/2023 1:47 PM EDT BRADEN purcell in pt.'s chart from date 04/05/2023. * Telephone Encounter - Leah Chau RN - 05/07/2023 3:17 PM EDT called pt to triage, spoke to pt. pt states seen ER at [facility] 2-3weeks ago for stomach pain, and needsto reschedule appt. pt was not able to make his appt today, and is requesting appt with PCP. pt diagnosed with Gastroenteritis with stomach pain, and pain after eating. pt denies vomiting, diarrhea, fevers, severe pain, or other associated symptoms. pt has been careful with diet, and is eating lightly. advised no available appt with PCP and offered appt tomorrow on the red team. pt declined this due to work commitments. advised no other available appts at this time and advised walk in center during operational hours and that wait times vary depending on patient volumes and acuity. pt understands and agrees with plan. insurance verified. Protocol Used: Abdominal Pain - Upper (Adult) Protocol-Based Disposition: See in Office or Video Visit within 2 Weeks Positive Triage Question: * Abdominal pain is a chronic symptom (recurrent or ongoing AND lasting > 4 weeks) * All higher-acuity triage questions were negative Care Advice Discussed: * Reassurance and Education - Stomach Pain * Drink Clear Fluids * Diet * Antacid Medicine * Avoid Aspirin and NSAIDs * Stop Smoking * Food Recommendations to Reduce Reflux * Reasons To Call Back - You become worse * Telephone Encounter - Constance Gill - 05/07/2023 2:09 PM EDT Tc from patient requesting to r/s sick on site appt from 05/07/23. documented in this encounter Plan of Treatment Not on file documented as of this encounter Visit Diagnoses Not on filedocumented in this encounter Care Teams Apple Solutions Consultant Relationship Specialty Start Date End Date Merissa Byers FNP [facility] [place] [address] PCP - General Family Medicine 12/27/22 Kun Delgado DMD [address] [place] [address] Dental Picker Machine Operator 08/31/24 documented as of this encounter
--- OUTSIDE RECORDS SUMMARY | 2025-07-04 00:48 | XMS_ITS | Encounter Summary ---
Author Organization [employer] Address [address] [place] [address] [address] [place] [address] Care Team Providers Care Senior Manager Quality Assurance Name Role Phone Merissa Byers PIPE MACHINE OPERATOR Primary Care Provider [phone] Kun Delgado DMD Unavailable Reason for Visit * Reason Onset Date Comments appt today 07/14/2024 Encounter Details Date Type Department Care Team ([facility] st Contact Info) Description 07/14/2024 Telephone [facility] ADULT D[facility]AL [address] [place] [address] Kun Delgado DMD [address] [place] [address] appt today Social History Tobacco Use Types Packs/Day Years [...] Orientation Straight 08/27/2022 10 :18 AM EDT documented as of this encounter Miscellaneous Notes * Telephone Encounter - Kun Delgado DMD - 07/14/2024 9:49 AM EDT Yes. I will check it this afternoon * Telephone Encounter - Elham Ramirez - 07/14/2024 9:38 AM EDT Patient is concerned about appt today because he says that his gums are very swollen and bleeding and not sure what is wrong. Patient was encouraged to keep his appt so that provider can take a look and see what is happening. He will still come to appt today DR documented in this encounter Plan of Treatment Not on file documented as of this encounter Visit Diagnoses Not on filedocumented in this encounter Care Teams Senior Manager Quality Assurance Relationship Specialty Start Date End Date Merissa Byers FNP [address] [place] [address] PCP - General Family Medicine 12/27/22 Kun Delgado DMD [address] [place] [address] Dental Ingredient Specialist 08/31/24 documented as of this encounter
--- OUTSIDE RECORDS SUMMARY | 2025-07-04 00:48 | XMS_ITS | Encounter Summary ---
Author Organization [employer] Address [address] [place] [address] [address] [place] [address] Care Team Providers Care Engraver Steel Plate Name Role Phone Zesehan Merissa [facility] Primary Care Provider [phone] Kun Delgado DMD Unavailable Encounter Details Date Type Department Care Team (Late st Contact Info) Description 01/14/2023 Abstract [facility] ADULT D[facility]AL [address] [place] [address] Khris Thompson DDS [address] [place] [address] Social History Tobacco Use Types Packs/Day Years [...] suspected to have Coronavirus/COVID-19? No / Unsure 12/24/2022 10:00 AM EST documented as of this encounter Plan of Treatment Not on file documented as of this encounter Visit Diagnoses Not on filedocumented in this encounter Care Teams Engraver Steel Plate Relationship Specialty Start Date End Date Merissa Byers FNP [address] [place] [address] PCP - General Family Medicine 12/27/22 Kun Delgado DMD [address] [place] [id number] Dental Audit Machine Operator 08/31/24 documented as of this encounter
--- OUTSIDE RECORDS SUMMARY | 2025-07-04 00:48 | XMS_ITS | Clinical Summary ---
Author Organization [facility] Address [address] [place] [address] [address] [place] [address] Care Team Providers Care Spark Tester Name Role Phone Merissa Byers CLIENT SOLUTIONS SPECIALIST Primary Care Provider Sandy Kun DMD Unavailable Allergies Active Allergy Reactions Criticality Noted Date Comments Shellfish-Derived Products Hives 7 [place] Oil 03/26/2017 Medications EPINEPHrine (Epipen) 0.3 MG/0.3ML injection syringe Inject 0.3 mL (0.3 mg) as directed 1 (one) time for 1 dose. 0.3 mL 3 Active fluticasone (Flonase) 50 MCG/ACT nasal sprayIndication s:COVID-19 virus infection Administer 1 spray into each nostril if needed in the morning and at bedtime for rhinitis. Shake gently. Before first use, prime pump. After use, clean tip and replace cap. 16 g 1 4 Active albuterol 108 (90 Base) MCG/ACT inhalerIndicati ons:COVID-19 virus infection Inhale 2 puffs every 4 (four) hours. 18 g 1 4 Active acetaminophen (Tylenol 8 Hour) 650 MG ER tablet Take 1 tablet (650 mg) by mouth every 8 (eight) hours if needed for mild pain. Do not crush, chew, or split. 40 tablet 1 5 06/19/20 25 Active Problems Problem Noted Date Diagnosed Date Flu-like symptoms 01/01/2025 Assessment & Plan (01/01/2025 11:39 AM EST): Advised to drink plenty fluids and rest I will prescribe acetaminophen as needed I will prescribe cough syrup as needed Dental calculus 06/18/2024 Dental caries 06/18/2024 Tooth hypersensitivity 06/18/2024 Missing teeth, acquired 06/18/2024 Gingival bleeding 06/18/2024 COVID-19 07/04/2023 Assessment & Plan (07/04/2023 1:56 PM EDT): -No evidence of respiratory distress. 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 02/04/2017 Knee pain 02/04/2017 Migraine without aura, not refractory 02/04/2017 Swelling of lower leg 02/04/2017 Encounters Date Type Department Care Team Description 05/20/2025 10:00 AM EDT Office Visit [facility] [address] [place] [address] Holly Christianson DO Acute gastroenteritis (Primary Dx) 05/20/2025 Travel from Last 3 Months Immunizations Immunization Administration Dates Next Due Influenza injectable quadriv alent IIV4 with preservative 08/11/2018 Influenza injectable quadrivalent preservative f ree 08/23/2017 Td (adult), 5 Lf tetanus tox oid, preservative free, adsorbed 01/09/2017 Social History Tobacco Use Types Packs/Day Years Used Date Smoking Tobacco: Every Day Cigarettes 0.5 10 Smokeless Tobacco: Never Tobacco Cessation:Ready to Q uit: Not Asked; Counseling Given: Not Answered Alcohol Use Standard Drinks/Week Comments Never 0 (1 standard drink = 0.6 oz pur e alcohol) Sex and Gender Information Value Date Recorded Sex Assigned at Male 08/27/2022 10:18 AM EDT Legal Sex Male 10:18 AM EDT Gender Identity Male 08/27/2022 10:18 AM EDT Sexual Orientation Straight 08/27/2022 10 :18 AM EDT Last Filed Vital Signs Vital Sign Reading Time Taken Comments Blood Pressure 135/88 05/20/2025 9:46 AM EDT Pulse 73 05/20/2025 9:46 AM EDT Temperature 36.6 C (97.9 F) 05/20/2025 9:46 AM EDT Respiratory Rate 16 05/20/2025 9:46 AM EDT Oxygen Saturation 98% 10/14/2024 10: 39 AM EST Inhaled Oxygen Concentration - - Weight 76.1 kg (167 lb 12.8 oz) 05/20/2025 9:46 AM EDT Height 170.2 cm (5' 7 ) 05/20/2025 9:46 AM EDT Body Mass Index 26.28 05/20/2025 9:46 AM EDT Plan of Treatment Health Maintenance Due Date Last Done Comments Depression Screening 1989 Lipid Panel 1989 SDOH Screening 1989 Disability Screening 1989 Alcohol/Substance Use Screening 2001 Family Planning (PISQ) 2004 HPV Vaccines (1 - Male 3-dos e series) 2004 Hepatitis B Vaccines (1 of 3 - 19+ 3-dose series) 2008 Pneumococcal Vaccine: Pediatrics (0 to 5 Years) and At-Risk Patients (6 to 49) Years (1 of 2 - PCV) 2008 DTaP/Tdap/Td Vaccines (1 - Tdap) 01/10/2017 01/09/2017 Dental Oral Exam 12/07/2024 06/05/2024, 11/02/2022 Dental Prophylaxis 12/20/2024 06/18/2024, 12/24/2022 Dental X-Ray: Bitewings 06/06/2025 06/05/20 24, 11/02/2022 COVID-19 Vaccine (3 - 2024-2 6 season) 2025 06/21/2021, 05/31/2021 Influenza Vaccine (#1) 2025 8, 08/23/2017 Dental X-Ray: Full Mouth 11/03/2025 11/02/2022 Tobacco Screening 05/20/2026 05/20/2025 Zoster Vaccines (1 of 2) 2039 RSV Patients and Patients Aged 60 years or older (1 - 1-dose 75+ series) 2064 HIV Screening Completed 01/15/2020 Hepatitis C Screening Completed 01/15/2020 HIB Vaccines Aged Out No longer eligi ble based on patient's age to complete this topic Hepatitis A Vaccines Aged Out No long er eligible based on patient's age to complete this topic IPV Vaccines Aged Out No longer eligi ble based on patient's age to complete this topic Meningococcal B Vaccine Aged Out No l onger eligible based on patient's age to complete this topic Meningococcal Vaccine Aged Out No lincoln antoinette eligible based on patient's age to complete this topic RSV under 20 months Aged Out No longe r eligible based on patient's age to complete this topic Rotavirus Vaccines Aged Out No longer eligible based on patient's age to complete this topic Procedures Procedure Name Priority Date/Time Associated Diagnosis Comments PROPHYLAXIS - ADULT Routine 06/18/2024 2 :00 PM EDT Dental calculus Gingival bleeding BITEWINGS - 4 RADIOGRAPHIC IMAGES Routine 06/05/2024 2:30 PM EDT PERIODIC ORAL EVALUATION - ESTABLISHED PATIENT Routine 06/05/2024 2:30 PM EDT INTRAORAL - COMPLETE SERIES OF RADIOGRAPHIC IMAGES Routine 11/02/2022 1:00 PM EST Dental caries ZZZ HISTORICAL HEPATITIS C ANTIBODY RFLX Routine 01/15/2020 12:10 PM EDT ZZZ HISTORICAL HIV AB/AG Routine 01/15/2020 12:10 PM EDT from Last 3 Months or Most Recently Relevant to Health Maintenance Results * HEPATITIS C ANTIBODY RFLX (01/15/2020 12:10 PM EDT) Pathologist [facility] HEPATITIS C ANTIBODY NONREACTIVE NONREACTIVE [facility] Comment: Antibodies to HCV not detected; does not exclude early acute HCV infection. 01/15/2020 12:1 0 PM EDT us Kalpesh Hansen MD HISTORICAL/NON ORDERABLE LABS Fi nal Result [facility] [address] * HIV AB/AG (01/15/2020 12:10 PM EDT) Pathologist [facility] HIV AG/AB NONREACTIVE [facility] Comment: HIV-1 p24 Ag and/or HIV-1/HIV-2 Ab not detected. A test result that is nonreactive does not exclude the possibility of exposure to or infection with HIV-1 and/or HIV-2. Nonreactive results in this assay for individuals with prior exposure to HIV-1 and/or HIV-2 may be due to antigen and antibody levels that are below the limit of detection of this assay. The [facility] HIV Ag/Ab Combo assay result and supplemental assay results should be interpreted in conjunction with the patient's clinical presentation, history and other laboratory results. If the results are inconsistent with clinical evidence, additional testing is suggested to confirm the result. 01/15/2020 12:1 0 PM EDT us Kalpesh Hansen MD HISTORICAL/NON ORDERABLE LABS Fi nal Result [facility] [address] from Last 3 Months or Most Recently Relevant to Health Maintenance Insurance [facility] [address] [place] [address] DENTAL - HSN PARTIAL (MEDICAID) Care Teams Spark Tester Relationship Specialty Start Date End Date Merissa Byers FNP [address] [place] [address] PCP - General Family Medicine 12/27/22 Kun Delgado DMD [address] [place] [address] Dental Sourcing Manager 08/31/24
--- OUTSIDE RECORDS SUMMARY | 2025-07-04 00:48 | XMS_ITS | Encounter Summary ---
Author Organization [facility] Address [address] [place] [address] 7 [place] [address] Care Team Providers Care Payroll Associate Name Role Phone Merissa Byers [facility] Primary Care Provider [phone] Kun Delgado DMD Unavailable Reason for Visit * Reason Onset Date Comments Nurse Triage 06/17/2023 Encounter Details Date Type Department Care Team ([facility] st Contact Info) Description 06/17/2023 Telephone [facility] [address] [place] [address] Merissa Byers [facility] [address] [place] [address] Nurse Triage Social History Tobacco Use Types Packs/Day Years [...] encounter Miscellaneous Notes * Telephone Encounter - Lola Milton RN - 06/17/2023 9:32 AM EDT Call to Chris Gooden, reports having been seen at [facility] ED 06/10 for muscle spasm. Pt given Rx for Banofen and motrin. Per pt not providing much relief. Per pt left lower back, radiating to left leg. Per pt had twisting injury while at lifting something at work. Per pt believes workmans comp claim filed. Ran pt insurance . Has [employer]. Pt advised will need to change insurance as we are not contracted with that insurance. Pt advised to call back after insurance is changed to book appt.Reviewed home care advise and reasons to call back. Protocol Used: Back Pain (Adult) Protocol-Based Disposition: See in Office or Video Visit within 3 Days Video visit offer not recorded Positive Triage Question: * Pain radiates into the thigh or further down the leg * All higher-acuity triage questions were negative Care Advice Discussed: * Reassurance and Education - Back Pain * Cold or Heat * Pain Medicines * Reasons To Call Back - Fever occurs - Numbness or weakness occurs, or bowel/bladder problems - You become worse * Telephone Encounter - Rosangela Montenegro - 06/17/2023 9:15 AM EDT Patient calling to report ED visit on 06/10/2023 at [facility]. Diagnosed with Muscle Spasms. Patient advised will forward to triage nurse for follow up. Pt states his still having severe pain. Please contact pt at [phone] documented in this encounter Plan of Treatment Not on file documented as of this encounter Visit Diagnoses Not on filedocumented in this encounter Care Teams Payroll Associate Relationship Specialty Start Date End Date Merissa Byers FNP [address] [place] [address] PCP - General Family Medicine 12/27/22 Kun Delgado DMD [address] [place] [address] Dental Telecom Specialist 08/31/24 documented as of this encounter
[2025-07-04 01:12] VITALS: BP 119/82; PULSE 64; RESP 16; TEMP 36.6; O2SAT 97
== END 2025-07-04 01:14 | disposition home or self-care (01) ==
PROVIDERS: Emergency Provider Emergency Medicine; PCP Registered Nurse
DX: L03.012 Cellulitis of left finger (principal)
CPT/HCPCS: 99283